=== PATIENT | female | born 1980 | race Caucasian/White ===

== ENCOUNTER 2020-08-10 12:59 | Inpatient (IN) ==
--- NOTE | 2020-08-10 13:29 | Emergency Department Note ---
Impression & Plan Neurologic disorder, Facial droop, Cerebrovascular accident ED Provider Note NAME: RONI FELDMAN AGE: 40 SEX: F : 1980 ARRIVES VIA: Walk-In INFORMANT: Patient, ED PROVIDER(S): Abdoul Degroot DO CHIEF COMPLAINT: Facial droop HPI: The patient is a 40-year-old female who presented to the emergency department for neurologic symptoms. The patient has a history of a dural venous thrombosis in her brain last summer. The patient states that she has been managed well on Coumadin and has had no problems until last week. She started noticing some questionable symptoms that she thought could be related to her nervous system including ringing in the ears. She has noticed ringing in the ears over the course the last week. It seems to be localized to her right ear. She denies having any trauma. She denies having any hearing loss. She denies having any significant headaches but started noticing some numbness on the right side of her face. When she awoke this morning she started noticing a drooping on her right side of her face as well involving her mouth. She denies having any recent fever or chills. She has had no cough. She has been compliant with all of her outpatient medication including her Coumadin. She was seen at the Coumadin clinic this week and was told her INR was therapeutic. The patient mika led her primary neurologist but did not receive a phone call back this week. She started to notice the facial droop today and this is what prompted her to come to the emergency department. She states her symptoms are unchanged since this morning. ROS: See above HPI for pertinent positives & negatives. A total of 10 systems reviewed and were otherwise negative. PAST MEDICAL HISTORY: See Below PAST SURGICAL HISTORY: See Below FAMILY HISTORY: See Below SOCIAL HISTORY: See Below HOME MEDICATIONS: See Below ALLERGIES: See Below VITALS: See Below PHYSICAL EXAMINATION: GENERAL: The patient is awake and alert. The patient is very anxious appearing. EYES: The conjunctivae are clear. The pupils are round and reactive. EARS, NOSE, MOUTH AND THROAT: The nose is without any evidence of any deformity. NECK: The neck is nontender and supple. RESPIRATORY: Normal respiratory effort is noted there is no evidence of wheezing rhonchi or rales CARDIOVASCULAR: Regular rate and rhythm noted there no murmurs rubs or gallops normal S1 normal S2. GASTROINTESTINAL: The abdomen is soft. Abdomen is nontender. MUSCULOSKELETAL/EXTREMITIES: There is no evidence of gross deformity full range of motion is noted in the hips and shoulders. SKIN: There is no obvious evidence of any rash. There are no petechiae, pallor or cyanosis noted. NEUROLOGIC: Patient is awake alert and oriented x3 strength is symmetric patellar reflexes are 2+ bilaterally. There is a facial droop that spares the forehead but appears to include the right side of the mouth. MEDICAL DECISION MAKING: The patient is a 40-year-old female who presented to the emergency department for an evaluation of right facial droop. 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 She does take oral anticoagulation and is followed at the Coumadin clinic. The patient started having tinnitus in the right ear. Initially this did not raise any flags and she did not think there was anything wrong. She started noticing over the last 24 hours that she had right facial numbness and right facial droop. She did appear to have a slight facial droop in the corner of the mouth on the right side with forehead sparing. Laboratory and radiographic studies were obtained. The patient was not made a stroke alert given her onset of symptoms approximately 1 week ago. She does appear to have chronic signs of venous thrombosis in the central nervous system however there were no acute findings. I discussed the patient's laboratory and radiographic studies with her. I discussed her case with the on-call [facility] hospitalist. They have agreed to evaluate the patient in the emergency department for further management and disposition. Triage Nursing notes reviewed. Prior medical records reviewed Vital Signs: reviewed and remarkable for tachycardia intermittently. Differential diagnosis: Infection, dehydration, metabolic abnormality, hypo/hyperglycemia, electrolyte disturbance, anemia, hypoxia, cardiac sources, intracerebral event, toxicologic, neurologic, as well as other pathologies. ER treatment provided: See below Diagnostics interpreted by me: ECG: EKG was obtained in the emergency department. My interpretation is sinus tachycardia at 111 bpm. There was no ectopy. Diffuse ST segment abnormalities were noted. Diffuse T wave flattening was noted. No previous tracing was available for comparison. Cardiac Monitoring: An order was placed for continuous cardiac monitoring. The monitor shows a rate of 89 bpm with sinus rhythm. Laboratory studies: As stated above and show below. Imaging studies: See below Consultation(s): 1510: I discussed this case with Dr. Alegre who is on-call for the [facility] hospitalist group. Past Med/Surg History Medical History (Updated 08/10/20 @ 19:08 by Abdoul Degroot DO) Chronic back pain L4-L5 Dural venous sinus thrombosis Environmental and seasonal allergies Hypothyroidism Lumbar facet arthropathy Migraine Surgical History History of adenoidectomy History of section History of tonsillectomy Family History Grandmother (Maternal) Lymph node cancer Social History Smoking Status: Never smoker Second Hand Exposure: No; Hx Alcohol Use: No Hx Substance Use: No Preferred Language: Hungarian Communication Ability: Effective Didactic Program In Dietetics Director Required: No Beliefs That Will Affect Care: None Current Living Situation: Family Feels Safe at Home: Yes Assistive Devices: Glasses Allergies Allergies Allergy/AdvReac Type Severity Reaction Status Date / Time pollen extracts Allergy Intermediate ITCHY, Verified 08/10/20 15:02 WATERY EYES, SNEEZING, CONGESTION Home Meds Home Medications Medication Instructions Recorded Confirmed cetirizine [Zyrtec] 10 mg PO QAM 01/17/20 08/10/20 levothyroxine 150 mcg PO DAILYBB 08/10/20 08/10/20 warfarin See Rx Instructions .ROUTE .COMPLEX 08/10/20 08/10/20 Results & Data (ED) Vital Signs Vital Signs - 24 hr 08/10/20 13:04 08/10/20 13:30 08/10/20 13:45 Temperature 36.5 C Temperature Source Oral Pulse Rate 141 H 109 H 93 H Pulse Rate from SpO2 Sensor 113 H 97 H Pulse Rhythm Regular Respiratory Rate 20 18 18 Respiratory Effort / Characteristics Non-Labored Spontaneous Respiratory Depth Normal Respiratory Pattern Regular Blood Pressure 111/82 132/93 121/78 Blood Pressure Mean 91 106 92 Pulse Oximetry 96 94 95 Oxygen Delivery Method Room Air Sepsis Recent Fever Within 48 Hours No Sepsis New/Unexplained Change in Mental Status No Sepsis Action Taken by Nursing No Action Required 08/10/20 15:38 08/10/20 16:00 08/10/20 16:31 Temperature Temperature Source Pulse Rate 88 109 H 99 H Pulse Rate from SpO2 Sensor 83 104 H 99 H Pulse Rhythm Respiratory Rate 22 18 22 Respiratory Effort / Characteristics Respiratory Depth Respiratory Pattern Blood Pressure 136/60 106/81 108/78 Blood Pressure Mean 85 89 88 Pulse Oximetry 95 96 91 Oxygen Delivery Method Sepsis Recent Fever Within 48 Hours Sepsis New/Unexplained Change in Mental Status Sepsis Action Taken by Nursing 08/10/20 17:00 Temperature Temperature Source Pulse Rate 90 Pulse Rate from SpO2 Sensor 93 H Pulse Rhythm Respiratory Rate 16 Respiratory Effort / Characteristics Respiratory Depth Respiratory Pattern Blood Pressure 114/85 Blood Pressure Mean 94 Pulse Oximetry 97 Oxygen Delivery Method Sepsis Recent Fever Within 48 Hours Sepsis New/Unexplained Change in Mental Status Sepsis Action Taken by Assisted Medications Current Medication List: was personally reviewed by me Laboratory Data Attestation: I reviewed the patient's lab results. Result diagrams: 08/10/20 13:10 08/10/20 13:10 Lab Results 08/10/20 08/10/20 08/10/20 Range/Units 13:10 13:10 13:10 WBC 8.03 (4.8-10.8) K/uL RBC 4.68 (4.2-5.4) M/uL Hgb 14.9 (12.0-16.0) g/dL POC Hgb (12.0-16.0) g/dl Hct 42.7 (37-47) % POC Hct (37-47) % MCV 91.2 (80-100) fL MCH 31.8 (25-34) pg MCHC 34.9 (32-36) g/dL RDW Std Deviation 44.2 (36.4-46.3) fL RDW Coeff of Pilar 13.4 (11.5-14.5) % Plt Count 310 (130-400) K/uL MPV 10.2 (7.4-10.4) fL Immature Gran % (Auto) 0.1 % Neut % (Auto) 45.9 % Lymph % (Auto) 45.1 % Berks % (Auto) 6.7 % Eos % (Auto) 2.1 % Baso % (Auto) 0.1 % Neut # (Auto) 3.68 (1.4-6.5) K/uL Lymph # (Auto) 3.62 H (1.2-3.4) K/uL Berks # (Auto) 0.54 (0.11-0.59) K/uL Eos # (Auto) 0.17 (0-0.5) K/uL Baso # (Auto) 0.01 (0-0.2) K/uL Immature Gran # (Auto) 0.01 (0.00-0.02) K/uL PT 22.2 H (9.0-12.0) Seconds INR 2.3 H (0.9-1.1) APTT 34.5 H (21.0-31.0) Seconds PTT Ratio 1.3 POC Sodium (135-144) mmol/L Sodium 139 (136-145) mmol/L POC Potassium (3.3-5.0) mmol/L Potassium 3.6 (3.5-5.1) mmol/L POC Chloride (101-112) mmol/L Chloride 106 (98-107) mmol/L Carbon Dioxide 24 (21-32) mmol/L POC Total CO2 (24-31) mmol/L Anion Gap 9.0 (3-11) POC Anion Gap (16-25) mmol/L POC BUN (7-18) mg/dl BUN 10 (7-18) mg/dl Creatinine 0.81 (0.6-1.2) mg/dl POC Creatinine (0.6-1.3) mg/dl Est Cr Clr Drug Dosing 109.6 ml/min Est GFR ( Amer) 103.8 Est GFR (Non-Af Amer) 89.6 BUN/Creatinine Ratio 11.9 (10-20) Glucose 126 H (70-99) mg/dl POC Glucose (other) (70-99) mg/dl Calcium 8.2 L (8.5-10.1) mg/dl POC Ioniz Calcium Maylin (1.12-1.32) mmol/l Magnesium 1.7 L (1.8-2.4) mg/dl Total Bilirubin 0.3 (0.2-1) mg/dl AST 30 (15-37) U/L ALT 54 (12-78) U/L Alkaline Phosphatase 141 H (45-117) U/L Troponin I < 0.015 (0-0.045) ng/ml Total Protein 7.0 (6.4-8.2) gm/dl Albumin 3.2 L (3.4-5.0) gm/dl Globulin 3.8 (2.5-4.0) gm/dl Albumin/Globulin Ratio 0.8 L (0.9-2) HCG, Qual (Negative) COVID-19 Eval Order SARS-CoV-2 (PCR) (Negative) Influenza Type A (PCR) (Neg) Influenza Type B (PCR) (Neg) RSV (RT-PCR) (Neg) 08/10/20 08/10/20 08/10/20 Range/Units 13:10 13:33 15:25 WBC (4.8-10.8) K/uL RBC (4.2-5.4) M/uL Hgb (12.0-16.0) g/dL POC Hgb 15.0 (12.0-16.0) g/dl Hct (37-47) % POC Hct 44 (37-47) % MCV (80-100) fL MCH (25-34) pg MCHC (32-36) g/dL RDW Std Deviation (36.4-46.3) fL RDW Coeff of Pilar (11.5-14.5) % Plt Count (130-400) K/uL MPV (7.4-10.4) fL Immature Gran % (Auto) % Neut % (Auto) % Lymph % (Auto) % Berks % (Auto) % Eos % (Auto) % Baso % (Auto) % Neut # (Auto) (1.4-6.5) K/uL Lymph # (Auto) (1.2-3.4) K/uL Berks # (Auto) (0.11-0.59) K/uL Eos # (Auto) (0-0.5) K/uL Baso # (Auto) (0-0.2) K/uL Immature Gran # (Auto) (0.00-0.02) K/uL PT (9.0-12.0) Seconds INR (0.9-1.1) APTT (21.0-31.0) Seconds PTT Ratio POC Sodium 139 (135-144) mmol/L Sodium (136-145) mmol/L POC Potassium 3.6 (3.3-5.0) mmol/L Potassium (3.5-5.1) mmol/L POC Chloride 105 (101-112) mmol/L Chloride (98-107) mmol/L Carbon Dioxide (21-32) mmol/L POC Total CO2 23 L (24-31) mmol/L Anion Gap (3-11) POC Anion Gap 15.0 L (16-25) mmol/L POC BUN 10 (7-18) mg/dl BUN (7-18) mg/dl Creatinine (0.6-1.2) mg/dl POC Creatinine 0.6 (0.6-1.3) mg/dl Est Cr Clr Drug Dosing ml/min Est GFR ( Amer) Est GFR (Non-Af Amer) BUN/Creatinine Ratio (10-20) Glucose (70-99) mg/dl POC Glucose (other) 131 H (70-99) mg/dl Calcium (8.5-10.1) mg/dl POC Ioniz Calcium Maylin 1.13 (1.12-1.32) mmol/l Magnesium (1.8-2.4) mg/dl Total Bilirubin (0.2-1) mg/dl AST (15-37) U/L ALT (12-78) U/L Alkaline Phosphatase (45-117) U/L Troponin I (0-0.045) ng/ml Total Protein (6.4-8.2) gm/dl Albumin (3.4-5.0) gm/dl Globulin (2.5-4.0) gm/dl Albumin/Globulin Ratio (0.9-2) HCG, Qual Negative (Negative) COVID-19 Eval Order CovFluRsv at [facility] SARS-CoV-2 (PCR) (Negative) Influenza Type A (PCR) (Neg) Influenza Type B (PCR) (Neg) RSV (RT-PCR) (Neg) 08/10/20 Range/Units 15:25 WBC (4.8-10.8) K/uL RBC (4.2-5.4) M/uL Hgb (12.0-16.0) g/dL POC Hgb (12.0-16.0) g/dl Hct (37-47) % POC Hct (37-47) % MCV (80-100) fL MCH (25-34) pg MCHC (32-36) g/dL RDW Std Deviation (36.4-46.3) fL RDW Coeff of Pilar (11.5-14.5) % Plt Count (130-400) K/uL MPV (7.4-10.4) fL Immature Gran % (Auto) % Neut % (Auto) % Lymph % (Auto) % Berks % (Auto) % Eos % (Auto) % Baso % (Auto) % Neut # (Auto) (1.4-6.5) K/uL Lymph # (Auto) (1.2-3.4) K/uL Berks # (Auto) (0.11-0.59) K/uL Eos # (Auto) (0-0.5) K/uL Baso # (Auto) (0-0.2) K/uL Immature Gran # (Auto) (0.00-0.02) K/uL PT (9.0-12.0) Seconds INR (0.9-1.1) APTT (21.0-31.0) Seconds PTT Ratio POC Sodium (135-144) mmol/L Sodium (136-145) mmol/L POC Potassium (3.3-5.0) mmol/L Potassium (3.5-5.1) mmol/L POC Chloride (101-112) mmol/L Chloride (98-107) mmol/L Carbon Dioxide (21-32) mmol/L POC Total CO2 (24-31) mmol/L Anion Gap (3-11) POC Anion Gap (16-25) mmol/L POC BUN (7-18) mg/dl BUN (7-18) mg/dl Creatinine (0.6-1.2) mg/dl POC Creatinine (0.6-1.3) mg/dl Est Cr Clr Drug Dosing ml/min Est GFR ( Amer) Est GFR (Non-Af Amer) BUN/Creatinine Ratio (10-20) Glucose (70-99) mg/dl POC Glucose (other) (70-99) mg/dl Calcium (8.5-10.1) mg/dl POC Ioniz Calcium Maylin (1.12-1.32) mmol/l Magnesium (1.8-2.4) mg/dl Total Bilirubin (0.2-1) mg/dl AST (15-37) U/L ALT (12-78) U/L Alkaline Phosphatase (45-117) U/L Troponin I (0-0.045) ng/ml Total Protein (6.4-8.2) gm/dl Albumin (3.4-5.0) gm/dl Globulin (2.5-4.0) gm/dl Albumin/Globulin Ratio (0.9-2) HCG, Qual (Negative) COVID-19 Eval Order SARS-CoV-2 (PCR) NEGATIVE (Negative) Influenza Type A (PCR) Negative (Neg) Influenza Type B (PCR) Negative (Neg) RSV (RT-PCR) Negative (Neg) Administered Medications Discontinued Medications Gadobutrol (Gadobutrol 65ml Vial) 10 ml IV ONCE ONE Stop: 08/10/20 18:54 Last Admin: 08/10/20 18:53 Dose: 10 ml Documented by: [id number] Ioversol (Optiray 320 125ml) 120 ml IV ONCE ONE Stop: 08/10/20 13:50 Last Admin: 08/10/20 13:49 Dose: 120 ml Documented by: [id number] Imaging Data Radiologist's Impression: Chest X-Ray 08/10/20 13:20 SINGLE VIEW CHEST CLINICAL HISTORY: Strokelike symptoms. Right-sided facial droop. FINDINGS: An AP, portable, upright chest radiograph is obtained. No prior studies are available for comparison at the time of dictation. The cardiomediastinal silhouette is unremarkable. The lungs and pleural spaces are clear. No pneumothorax is seen. The bony thorax is grossly intact. IMPRESSION: No active disease in the chest. ACT 112: Negative or not required by law. Electronically signed by: Ramu Gleason M.D. 08/10/2020 2:[address] 08/10/20 13:[address] OF THE BRAIN; CT VENOGRAM OF THE BRAIN CLINICAL HISTORY: Right-sided facial droop. COMPARISON STUDY: CT of the brain dated 01/17/2020. MR venogram of the brain dated 09/30/2019. TECHNIQUE: Unenhanced axial CT scan of the brain is performed. Subsequently, following the IV administration of 120 cc of Optiray 320, CT venogram of the brain was performed from the skull base to the vertex. Images are reviewed in the axial, sagittal, and coronal planes. 3-D MIPS images are created and assessed. IV contrast was administered without complication. A dose lowering technique was utilized adhering to the principles of ALARA. CT DOSE: 725.81 mGy.cm FINDINGS: Brain parenchyma: The brain parenchyma is normal in appearance. There is no hemorrhage, mass effect, or evidence of acute territorial ischemia by CT criteria. There is no evidence of enhancing mass lesion on the venogram phase images. No extra-axial fluid collection is seen. Scherer-white matter differentiation is preserved. Ventricles, sulci, and cisterns: Normal in configuration. Intracranial arteries: There is origin of the left posterior cerebral art clive. The internal carotid arteries are widely patent, as are the anterior and middle cerebral arteries. The vertebrobasilar system and posterior cerebral arteries are widely patent. The left vertebral artery is dominant. There is no aneurysm, high-grade stenosis, or focal vessel cutoff identified throughout the intracranial circulation. Dural sinuses: There is no evidence of acute dural sinus thrombosis. There is a small amount of chronic appearing nonocclusive thrombus within the right transverse and sigmoid sinuses. Nonocclusive thrombus is also identified in the right internal jugular vein at the skull base. The internal jugular veins in the neck are clear. The remaining dural sinuses are patent. Orbits: The bony orbits are intact. The orbital contents are normal as visualized. Sinuses and mastoids: Trace mucosal thickening is noted in the maxillary antra and the sphenoid sinuses. The mastoid air cells are well pneumatized. Calvarium: Unremarkable. IMPRESSION: 1. There is no hemorrhage, mass effect, or evidence of acute territorial ischemia by CT criteria. 2. The intracranial arteries are patent. 3. There is a small amount of chronic appearing and nonocclusive thrombus in the right transverse and sigmoid sinuses. 4. There is also nonocclusive thrombus within the right internal jugular vein at the skull base. This is also likely chronic. ACT 112: Negative or not required by law. Electronically signed by: Ramu Gleason M.D. 08/10/2020 2:[address] 08/10/20 13:[address] OF THE BRAIN; CT VENOGRAM OF THE BRAIN CLINICAL HISTORY: Right-sided facial droop. COMPARISON STUDY: CT of the brain dated 01/17/2020. MR venogram of the brain dated 09/30/2019. TECHNIQUE: Unenhanced axial CT scan of the brain is performed. Subsequently, following the IV administration of 120 cc of Optiray 320, CT venogram of the brain was performed from the skull base to the vertex. Images are reviewed in the axial, sagittal, and coronal planes. 3-D MIPS images are created and assessed. IV contrast was administered without complication. A dose lowering technique was utilized adhering to the principles of ALARA. CT DOSE: 725.81 mGy.cm FINDINGS: Brain parenchyma: The brain parenchyma is normal in appearance. There is no hemorrhage, mass effect, or evidence of acute territorial ischemia by CT criteria. There is no evidence of enhancing mass lesion on the venogram phase images. No extra-axial fluid collection is seen. Scherer-white matter differentiation is preserved. Ventricles, sulci, and cisterns: Normal in configuration. Intracranial arteries: There is origin of the left posterior cerebral artery. The internal carotid arteries are widely patent, as are the anterior and middle cerebral arteries. The vertebrobasilar system and posterior cerebral arteries are widely patent. The left vertebral artery is dominant. There is no aneurysm, high-grade stenosis, or focal vessel cutoff identified throughout the intracranial circulation. Dural sinuses: There is no evidence of acute dural sinus thrombosis. There is a small amount of chronic appearing nonocclusive thrombus within the right transverse and sigmoid sinuses. Nonocclusive thrombus is also identified in the right internal jugular vein at the skull base. The internal jugular veins in the neck are clear. The remaining dural sinuses are patent. Orbits: The bony orbits are intact. The orbital contents are normal as visualized. Sinuses and mastoids: Trace mucosal thickening is noted in the maxillary antra and the sphenoid sinuses. The mastoid air cells are well pneumatized. Calvarium: Unremarkable. IMPRESSION: 1. There is no hemorrhage, mass effect, or evidence of acute territorial ischemia by CT criteria. 2. The intracranial arteries are patent. 3. There is a small amount of chronic appearing and nonocclusive thrombus in the right transverse and sigmoid sinuses. 4. There is also nonocclusive thrombus within the right internal jugular vein at the skull base. This is also likely chronic. ACT 112: Negative or not required by law. Electronically signed by: Ramu Gleason M.D. 08/10/2020 2:00 PM Discharge Plan Visit Data Chief Complaint: Neuro Symptoms/Deficit Stated Complaint: BLOOD CLOT IN BRAIN, RIGHT SIDE NUMB, BLOOD THINNE ED Provider: Abdoul Degroot Discharge Problem: Neurologic disorder, Facial droop, Cerebrovascular accident Patient Disposition: Still a Patient Condition: Good Forms Stand Alone Forms: My [facility] Prescriptions Prescriptions: No Action cetirizine [Zyrtec] 10 mg Tablet 10 mg PO QAM RF: 0 warfarin 5 mg tablet See Rx Instructions .ROUTE .COMPLEX RF: 0 levothyroxine 150 mcg tablet 150 mcg PO DAILYBB RF: 0 Referrals Referrals: Zuri Fish [Primary Care Provider] - Discharge Problem: Cerebrovascular accident Qualifiers: CVA mechanism: unspecified Qualified Code(s): I63.9 - Cerebral infarction, unspecified
[2020-08-10 13:38] LABS: Basophils # (auto) 0.01 K/uL (0-0.2); Basophils % (auto) 0.1 %; Eosinophils # (auto) 0.17 K/uL (0-0.5); Eosinophils % (auto) 2.1 %; Hematocrit (blood only) 42.7 % (37-47); Hemoglobin 14.9 g/dL (12.0-16.0); Immature Granulocytes # (auto) 0.01 K/uL (0.00-0.02); Immature Granulocytes % (auto) 0.1 %; Lymphocytes # (auto) 3.62 K/uL (1.2-3.4); Lymphocytes % (auto) 45.1 %; Mean Corpuscular Hemoglobin 31.8 pg (25-34); Mean Corpuscular Hgb Conc 34.9 g/dL (32-36); Mean Corpuscular Volume 91.2 fL (80-100); Mean Platelet Volume 10.2 fL (7.4-10.4); Monocytes # (auto) 0.54 K/uL (0.11-0.59); Monocytes % (auto) 6.7 %; Neutrophils # (auto) 3.68 K/uL (1.4-6.5); Neutrophils % (auto) 45.9 %; Platelet Count 310 K/uL (130-400); RDW Coefficient of Variation 13.4 % (11.5-14.5); RDW Standard Deviation 44.2 fL (36.4-46.3); Red Blood Count 4.68 M/uL (4.2-5.4); White Blood Count 8.03 K/uL (4.8-10.8)
[2020-08-10 13:46] LABS: iSTAT Creatinine 0.6 mg/dl (0.6-1.3); iSTAT Ionized Calcium 1.13 mmol/l (1.12-1.32); iSTAT Potassium 3.6 mmol/L (3.3-5.0)
[2020-08-10] MEDS ORDERED: OPTIRAY 320 125ml IV ONE (13:49)
[2020-08-10 13:52] LABS: INR 2.3 (0.9-1.1); Partial Thromboplastin Ratio 1.3; Partial Thromboplastin Time 34.5 Seconds (21.0-31.0); Prothrombin Time 22.2 Seconds (9.0-12.0)
[2020-08-10 13:53] LABS: Alanine Aminotransferase 54 U/L (12-78); Albumin Level 3.2 gm/dl (3.4-5.0); Aspartate Aminotransferase 30 U/L (15-37); BUN Creatinine Ratio 11.9 (10-20); Blood Urea Nitrogen 10 mg/dl (7-18); Calcium 8.2 mg/dl (8.5-10.1); Carbon Dioxide 24 mmol/L (21-32); Chloride 106 mmol/L (98-107); Creatinine Clr Calc Pharmacy 109.6 ml/min; Est GFR (African American) 103.8; Est GFR (Non-African American) 89.6; Glucose 126 mg/dl (70-99); Magnesium 1.7 mg/dl (1.8-2.4); Potassium 3.6 mmol/L (3.5-5.1); Sodium 139 mmol/L (136-145)
--- NOTE | 2020-08-10 13:55 | Electrocardiogram Report ---
Test Reason : Blood Pressure : / mmHG Vent. Rate : 111 BPM Atrial Rate : 111 BPM P-R Int : 158 ms QRS Dur : 092 ms QT Int : 344 ms P-R-T Axes : 030 -65 062 degrees QTc Int : 467 ms Sinus tachycardia Left axis deviation Pulmonary disease pattern Diffuse Minor Nonspecific T wave abnormality Abnormal ECG No previous ECGs available Confirmed by Yossi Winter ([id number]) on 08/10/2020 1:54:46 PM Referred By: Confirmed By:Yossi Winter
[2020-08-10 13:57] LABS: Albumin Globulin Ratio 0.8 (0.9-2); Alkaline Phosphatase 141 U/L (45-117); Bilirubin,Total 0.3 mg/dl (0.2-1); Globulin 3.8 gm/dl (2.5-4.0); Troponin I < 0.015 ng/ml (0-0.045)
--- NOTE | 2020-08-10 14:01 | CT Scan Report ---
UNENHANCED CT OF THE BRAIN; CT VENOGRAM OF THE BRAIN CLINICAL HISTORY: Right-sided facial droop. COMPARISON STUDY: CT of the brain dated 01/17/2020. MR venogram of the brain dated 09/30/2019. TECHNIQUE: Unenhanced axial CT scan of the brain is performed. Subsequently, following the IV adminis tration of 120 cc of Optiray 320, CT venogram of the brain was performed from the skull base to the v ertex. Images are reviewed in the axial, sagittal, and coronal planes. 3-D MIPS images are created an d assessed. IV contrast was administered without complication. A dose lowering technique was utilize d adhering to the principles of ALARA. CT DOSE: 725.81 mGy.cm FINDINGS: Brain parenchyma: The brain parenchyma is normal in appearance. There is no hemorrhage, mass effect, or evidence of acute territorial ischemia by CT criteria. There is no evidence of enhancing mass lesi on on the venogram phase images. No extra-axial fluid collection is seen. Scherer-white matter different iation is preserved. Ventricles, sulci, and cisterns: Normal in configuration. Intracranial arteries: There is origin of the left posterior cerebral artery. The internal [place] arteries are widely patent, as are the anterior and middle cerebral arteries. The vertebrobasilar system and posterior cerebral arteries are widely patent. The left vertebral artery is dominant. The re is no aneurysm, high-grade stenosis, or focal vessel cutoff identified throughout the intracranial circulation. Dural sinuses: There is no evidence of acute dural sinus thrombosis. There is a small amount of chron ic appearing nonocclusive thrombus within the right transverse and sigmoid sinuses. Nonocclusive thro mbus is also identified in the right internal jugular vein at the skull base. The internal jugular ve ins in the neck are clear. The remaining dural sinuses are patent. Orbits: The bony orbits are intact. The orbital contents are normal as visualized. Sinuses and mastoids: Trace mucosal thickening is noted in the maxillary antra and the sphenoid sinus es. The mastoid air cells are well pneumatized. Calvarium: Unremarkable. IMPRESSION: 1. There is no hemorrhage, mass effect, or evidence of acute territorial ischemia by CT criteria. 2. The intracranial arteries are patent. 3. There is a small amount of chronic appearing and nonocclusive thrombus in the right transverse and sigmoid sinuses. 4. There is also nonocclusive thrombus within the right internal jugular vein at the skull base. This is also likely chronic. ACT 112: Negative or not required by law. Electronically signed by: Ramu Gleason M.D. 08/10/2020 2:00 PM
[2020-08-10 14:17] LABS: Pregnancy Test, Serum Negative (Negative)
--- NOTE | 2020-08-10 14:31 | XRay Report ---
SINGLE VIEW CHEST CLINICAL HISTORY: Strokelike symptoms. Right-sided facial droop. FINDINGS: An AP, portable, upright chest radiograph is obtained. No prior studies are available for c omparison at the time of dictation. The cardiomediastinal silhouette is unremarkable. The lungs and pleural spaces are clear. No pneumothorax is seen. The bony thorax is grossly intact. IMPRESSION: No active disease in the chest. ACT 112: Negative or not required by law. Electronically signed by: Ramu Gleason M.D. 08/10/2020 2:30 PM
--- NOTE | 2020-08-10 15:55 | History & Physical Report ---
Date of Service August 10, 2020 Assessment & Plan (1) Demyelinating disease: Suspected based on MRI Solu-Medrol 1 g IV daily for 3 days. Consult neurology - discussed with Dr. Smith will continue on warfarin and defer lumbar puncture and further work-up to neurology tomorrow (2) Dural venous sinus thrombosis: History of such. Continue usual warfarin dosing. (3) Hypothyroidism: TSH unknown. We will repeat with a.m. labs. Continue levothyroxine 150 mcg p.o. daily (4) Facial droop: (5) Right facial numbness: Admission and Anticipated Discharge Date Admission Date: August 10, 2020 History of Present Illness Chief Complaint: Strokelike symptoms Primary Care Provider: Zuri Fish Annita Su is a 40-year-old female with previous dural venous thrombus in September 2019 (headache and blurry vision) suspected secondary to OCP use treated with warfarin initially plan for 6 months but she still remains on this. She reports multiple symptoms starting with tinnitus in her right ear for the past week. This is associated with orthostatic dizziness especially when bending down to tie shoes. She denies any room spinning sensation. She called her neurology office and recommended going to the ER although she declined therefore they set her up with vestibular therapy which is still pending. In hindsight she realized she felt her lip numbness starting 2 days ago when she has progressively become more obvious. Yesterday she noticed tingling on the top of her right forehead. Today approximately 30 minutes before coming in she noticed the right side of her mouth drooping. Associated throat feeling dry however denies any loss of taste or change in tongue strength. No extremity weakness or change in sensation. No change in speech or vision. No difficulty closing her right eye. In the ER CT venogram showed small chronic nonocclusive changes only, CT head was unremarkable. She was referred to medicine for admission ongoing management of acute neurological deficit with right facial droop. Allergies Allergy/AdvReac Type Severity Reaction Status Date / Time pollen extracts Allergy Intermediate ITCHY, Verified 08/10/20 15:02 WATERY EYES, SNEEZING, CONGESTION Home Medications Medication Instructions Recorded Confirmed Type cetirizine [Zyrtec] 10 mg PO QAM 01/17/20 08/10/20 History levothyroxine 150 mcg PO DAILYBB 08/10/20 08/10/20 History warfarin See Rx Instructions .ROUTE .COMPLEX 08/10/20 08/10/20 History Past Med/Surg History Medical History (Updated 08/10/20 @ 22:02 by Bob Alegre MD) Chronic back pain L4-L5 Dural venous sinus thrombosis Environmental and seasonal allergies Hypothyroidism Lumbar facet arthropathy Migraine Surgical History History of adenoidectomy History of section History of tonsillectomy Family History Grandmother (Maternal) Lymph node cancer Social History Smoking Status: Never smoker Second Hand Exposure: No; Hx Alcohol Use: No Hx Substance Use: No Preferred Language: [place]er Communication Ability: Effective Cardiac Catheterization Technician Required: No Beliefs That Will Affect Care: None Current Living Situation: Family Feels Safe at Home: Yes Assistive Devices: Glasses Review of Systems Review of Systems: All systems reviewed & are unremarkable except as noted in HPI & below Physical Exam Constitutional: WD/WN, vitals as above + obese Eyes: PERRL, conjunctivae normal, anicteric sclerae ENMT: external ear and nose normal, oropharynx normal Neck: trachea midline Respiratory: normal respiratory effort, lungs clear to auscultation Cardiovascular: RRR, no murmur, no edema Musculoskeletal: no cyanosis or clubbing, extremities motor strength 5/5 Neurologic: moves all extremities and awake; no focal motor deficits (No extremity motor deficit) and not confused Motor/Sensory: + sensory deficit (Right V1and V2 distribution numbness) Cranial Nerves: PERRL, EOM intact bilaterally (No diplopia), tongue midline, able to rotate head bilaterally, able to elevate shoulders bilaterally, no nystagmus and symmetric palate elevation; + abnormal facial strength (Right mouth droop) Psychiatric: A+Ox3, euthymic affect Genitourinary: no CVA tenderness Results & Data Results & Data ([facility]) Vital Signs (Past 12 Hours) Vital Signs Temp Pulse Resp BP Pulse Ox 08/10/20 15:38 88 22 136/60 95 08/10/20 13:45 93 H 18 121/78 95 08/10/20 13:30 109 H 18 132/93 94 04/04/21 13:04 36.5 C 141 H 20 111/82 96 Diagnostic Findings SINGLE VIEW CHEST IMPRESSION: No active disease in the chest. UNENHANCED CT OF THE BRAIN; CT VENOGRAM OF THE BRAIN IMPRESSION: 1. There is no hemorrhage, mass effect, or evidence of acute territorial ischemia by CT criteria. 2. The intracranial arteries are patent. 3. There is a small amount of chronic appearing and nonocclusive thrombus in the right transverse and sigmoid sinuses. 4. There is also nonocclusive thrombus within the right internal jugular vein at the skull base. This is also likely chronic. MRI OF THE BRAIN COMBO IMPRESSION: 1. There is an 8 mm focus of T2 signal abnormality identified at the right pontomedullary junction. This demonstrates abnormal postcontrast enhancement, and when correlated with the cervical spine findings likely represents a focus of active demyelination within a multiple sclerosis plaque. Follow-up with neurology is recommended, and repeat examination in 1-2 months is recommended to document resolution. 2. There are additional scattered subcentimeter foci of T2 signal within the subcortical and periventricular white matter. A lesion in the right frontal lobe periventricular white matter also shows mild postcontrast enhancement. 3. There are 2 additional T2 hyperintense lesions within the upper cervical cord, also likely representing foci of demyelination. 4. There is no hemorrhage, mass effect, or evidence of acute ischemia. MRI OF THE CERVICAL SPINE COMBO IMPRESSION: 1. There are three T2 hyperintense lesions identified in the cervical cord as detailed above. These could represent demyelinating plaques in the setting of multiple sclerosis as clinically suspected. 2. There is no abnormal postcontrast enhancement identified. 3. Mild degenerative change as above. Code Status & VTE Plan Code Status Full VTE Prophylaxis Plan VTE Prophylaxis will be ordered: No Reason for no VTE drug order: Treatment not indicated Reason for no VTE mechanical prophylaxis: Treatment not indicated PG Care Time/CCT Total # of Minutes Spent Total Time Spent with Patient: Total time spent is greater than 50% in coordination of care (as documented) at patient's floor/unit and/or counseling patient: Coding Level of Care Code 81047 Initial Inpt Care Lvl 3 Diagnoses Demyelinating disease G37.9 Dural venous sinus thrombosis G08 Hypothyroidism E03.9 Facial droop R29.810 Right facial numbness R20.0
[2020-08-10 16:14] LABS: Influenza A virus by PCR Negative (Neg); Influenza B virus by PCR Negative (Neg); RSV by PCR Negative (Neg); SARS CoV2 RNA(COVID-19) InHosp NEGATIVE (Negative)
[2020-08-10] MEDS ORDERED: GADOBUTROL 65ML VIAL IV ONE (18:53)
--- NOTE | 2020-08-10 19:31 | Magnetic Resonance Report ---
MRI OF THE BRAIN COMBO CLINICAL HISTORY: Right-sided facial droop. Right-sided numbness. Clinical concern for multiple scler osis. COMPARISON STUDY: CT of the brain dated 08/10/2020. MRI of the brain dated 09/30/2019. TECHNIQUE: MRI of the brain was performed utilizing various T1 and T2-weighted sequences in the axial , sagittal, and coronal planes. Contrast-enhanced sequences were acquired following the administratio n of 10 cc of Gadavist. The examination is performed using the multiple sclerosis protocol. FINDINGS: Brain parenchyma: There are 3 subcentimeter foci of T2 signal abnormality identified in the subcortic al and periventricular white matter. A lesion in the right frontal white matter on coronal image #8 s hows postcontrast enhancement. An 8 mm focus of T2 signal abnormality is identified in the right pont omedullary junction on high-resolution FLAIR image #42 of 129. This shows abnormal postcontrast enhan cement, best seen on coronal image #16. There is no hemorrhage or mass effect. There is no restricted diffusion typical for acute ischemia. No enhancing mass lesion is identified on the postcontrast brendon ges. Scherer-white matter differentiation is preserved. No extra-axial fluid collection is seen. The cer ebellar tonsils are normal in configuration. Ventricles, sulci, and cisterns: Normal in configuration. Pituitary and sella: Unremarkable. Intracranial vasculature: Normal flow voids are maintained at the skull base. Orbits: The bony orbits are grossly intact. Orbital contents are normal in appearance. Sinuses and mastoids: There is mild mucosal thickening and secretions within the left sphenoid sinus. The remaining paranasal sinuses are clear. The mastoid air cells are well pneumatized. Calvarium: Unremarkable. Cervical cord: There are 2 T2 hyperintense lesions identified in the upper cervical cord at the crani ocervical junction and at the level of C2 which measure up to 1 cm. IMPRESSION: 1. There is an 8 mm focus of T2 signal abnormality identified at the right pontomedullary junction. T his demonstrates abnormal postcontrast enhancement, and when correlated with the cervical spine findi ngs likely represents a focus of active demyelination within a multiple sclerosis plaque. Follow-up w [facility] neurology is recommended, and repeat examination in 1-2 months is recommended to document resolut ion. 2. There are additional scattered subcentimeter foci of T2 signal within the subcortical and perivent ricular white matter. A lesion in the right frontal lobe periventricular white matter also shows mild postcontrast enhancement. 3. There are 2 additional T2 hyperintense lesions within the upper cervical cord, also likely represe nting foci of demyelination. 4. There is no hemorrhage, mass effect, or evidence of acute ischemia. ACT 112: Negative or not required by law. Electronically signed by: Ramu Gleason M.D. 08/10/2020 7:30 PM
--- NOTE | 2020-08-10 19:42 | Magnetic Resonance Report ---
MRI OF THE CERVICAL SPINE COMBO CLINICAL HISTORY: Tinnitus. Right-sided facial and upper extremity numbness. Clinical concern for mul tiple sclerosis. COMPARISON STUDY: No priors. TECHNIQUE: MRI of the cervical spine is performed utilizing various T1 and T2-weighted sequences in t he axial and sagittal planes. Contrast-enhanced sequences are acquired following the IV administratio n of 10 cc of Gadavist. FINDINGS: Cervical spine: Vertebral body height and alignment are maintained throughout the cervical spine. The re is straightening of the cervical lordosis. The atlantodental articulation is maintained. The spino us processes appear intact. A small hemangioma is noted in the body of C7. No destructive bony lesion is seen. Intervertebral discs: There is mild degenerative disc desiccation. The disc spaces are maintained. Spinal cord: The cervical spinal cord is normal in morphology. There is a 1.0 cm T2 hyperintense lesi on at the level of C2 seen on sagittal STIR image #7. A 5 mm lesion is suggested in the left aspect o f the cord at C3-C4, and a 5 mm lesion is suggested at the craniocervical junction on sagittal STIR i mage #8. There is no associated abnormal postcontrast enhancement. C2-C3: Uncovertebral and facet arthropathy of no consequence. The central canal and neural foramina a re patent. C3-C4: Facet arthropathy is of no consequence. The central canal and neural foramina are patent. C4-C5: A posterior disc osteophyte complex eccentric to the right minimally effaces the ventral subar achnoid space. The neural foramina are patent. C5-C6: A posterior disc osteophyte complex eccentric to the right abuts the ventral cord. The neural foramina appear clear. C6-C7: A posterior disc osteophyte complex eccentric to the right minimally effaces the ventral subar achnoid space. The neural foramina are clear. C7-T1: Unremarkable. Soft tissues: The prevertebral and paraspinous soft tissues are normal as visualized. Brain parenchyma: The imaged brain parenchyma at the skull base is normal in appearance. IMPRESSION: 1. There are three T2 hyperintense lesions identified in the cervical cord as detailed above. These c ould represent demyelinating plaques in the setting of multiple sclerosis as clinically suspected. 2. There is no abnormal postcontrast enhancement identified. 3. Mild degenerative change as above. Dictated: 08/10/2020 7:01 PM Transcribed: 08/10/2020 7:38 PM Nesha [id number] [id number] Electronically signed by: Ramu Gleason M.D. 08/10/2020 7:41 PM
[2020-08-10] MEDS ORDERED: methylPREDNISolone 125 MG/2 ML VIAL IV STA (20:02)
[2020-08-10] MEDS ORDERED: methylPREDNISolone 1,000 MG in DEXTROSE 5% 250 ML IV ONE (20:15)
[2020-08-10] MEDS ORDERED: WARFARIN SOD 5 MG TAB PO ONE (22:11)
[2020-08-11] MEDS: LEVOTHYROXINE SODIUM 150 MCG TABLET PO SCH (05:45)
[2020-08-11] MEDS ORDERED: METOPROLOL TARTRATE 1 MG/ML VIAL IV PRN (07:37)
--- NOTE | 2020-08-11 07:37 | Hospitalist Progress Note ---
Date of Service August 11, 2020 Assessment & Plan (1) Demyelinating disease: Suspected based on MRI 08/10/20 IMPRESSION: 1. There is an 8 mm focus of T2 signal abnormality identified at the right pontomedullary junction. This demonstrates abnormal postcontrast enhancement, and when correlated with the cervical spine findings likely represents a focus of active demyelination within a multiple sclerosis plaque. Follow-up with neurology is recommended, and repeat examination in 1-2 months is recommended to document resolution. 2. There are additional scattered subcentimeter foci of T2 signal within the subcortical and periventricular white matter. A lesion in the right frontal lobe periventricular white matter also shows mild postcontrast enhancement. 3. There are 2 additional T2 hyperintense lesions within the upper cervical cord, also likely representing foci of demyelination. 4. There is no hemorrhage, mass effect, or evidence of acute ischemia. Solu-Medrol 1 g IV daily for 3 days. Consult neurology - discussed with Dr. Smith will continue on warfarin and defer lumbar puncture and further work-up to neurology tomorrow (2) Dural venous sinus thrombosis: History of such. Continue usual warfarin dosing. Ct venogram head 08/10/20, IMPRESSION: 1. There is no hemorrhage, mass effect, or evidence of acute territorial ischemia by CT criteria. 2. The intracranial arteries are patent. 3. There is a small amount of chronic appearing and nonocclusive thrombus in the right transverse and sigmoid sinuses. 4. There is also nonocclusive thrombus within the right internal jugular vein at the skull base. This is also likely chronic. (3) Hypothyroidism: TSH unknown. We will repeat with a.m. labs. Continue levothyroxine 150 mcg p.o. daily (4) Facial droop: (5) Right facial numbness: Admission and Anticipated Discharge Date Admission Date: August 10, 2020 Subjective Patient was seen in her room she was having improvement of her numbness about her right face. She is having no problems speaking chewing swallowing. She has no other physical limitations. She is on 1 g of Solu-Medrol daily for 3 days. She did ask that I call the [employer] that she is trying to have her returned home from [place] as he is in the service. I did phone the [employer] [facility] answered me standard questions which I answered as honestly as I could. I did voice the fact that the patient feels she is issues with caring for her children and with her overseas and her date dealing with a new diagnosis of multiple sclerosis she would appreciate him to be considered to be brought home. Review of Systems Review of Systems: Mild distress and fatigue no headache, blurry or double vision no speech or swallowing issues has some residual right-sided face paresthesias and numbness no chest pain, pressure or palpitations no shortness of breath, cough or wheezes no abdominal pain, nausea or vomiting, diarrhea or constipation no dysuria, hematuria or frequency no focal joint pain or swelling no back pain, CVA tenderness or radicular pain no bruising, bleeding or rashes no focal signs of weakness or numbness or altered sensation no complaints of anxiety or depression.. Physical Exam Physical Exam: The patient appeared well nourished and normally developed. Vital signs as documented. Head exam is normocephalic atraumatic no scleral icterus there is no facial asymmetry Neck is without JVD, thyromegaly, or carotid bruits. Lungs are clear to auscultation, no focal loss of breath sounds Cardiac exam, Rhythm is regular.. No murmurs, rubs or gallops. Abdominal exam reveals normal bowel sounds, soft non tender, no masses Extremities are nonedematous and both pedal pulses are present She does have chronic daily back pain with a radicular component down her right leg Neurologic exam is alert and oriented, no focal loss of strength no facial muscular asymmetry she claims to have objective paresthesias to her right face Skin is without bruises or rashes Psychologically is with concerns for anxiety Results & Data Results & Data ([facility]) Vital Signs (Past 12 Hours) Vital Signs Temp Pulse Pulse Pulse Resp BP BP 08/11/20 07:28 119 H 133/81 08/11/20 07:26 98.1 F 93 H 20 100/65 08/11/20 07:00 95 H 08/11/20 03:29 97.9 F 94 H 18 95/65 L 08/11/20 00:14 110 H 08/10/20 22:30 98.1 F 108 H 20 106/75 08/10/20 21:50 98.2 F 102 H 18 123/91 08/10/20 21:31 100 H 08/10/20 20:39 89 16 116/89 04/04/21 20:00 91 H 22 133/94 Pulse Ox 08/11/20 07:28 08/11/20 07:26 95 08/11/20 07:00 08/11/20 03:29 94 08/11/20 00:14 08/10/20 22:30 96 08/10/20 21:50 99 08/10/20 21:31 08/10/20 20:39 97 08/10/20 20:00 98 PG Care Time/CCT Total # of Minutes Spent Total Time Spent with Patient: Total time spent is greater than 50% in coordination of care (as documented) at patient's floor/unit and/or counseling patient: Coding Level of Care Code 86779 Subseq Hosp Care Lvl 2 Diagnoses Demyelinating disease G37.9 Dural venous sinus thrombosis G08 Hypothyroidism E03.9 Facial droop R29.810 Right facial numbness R20.0
[2020-08-11] MEDS: CETIRIZINE HCL 10 MG TABLET PO SCH (08:21)
[2020-08-11] MEDS: methylPREDNISolone 1,000 MG in DEXTROSE 5% 250 ML IV SCH (08:21)
--- NOTE | 2020-08-11 12:32 | Neurology Consultation ---
Date of Consultation August 11, 2020 Assessment & Plan (1) Right facial numbness: 1. facial numbness and facial droop resolving. Present on Admission?: Yes (2) Demyelinating disease: 1. currently on methylprednisone IV 1 g x 3 days 2. will reassess as outpatient for direction of care- evaluation for LP once the coumadin is stopped. 3. referral will be placed to our MS specialist for her input 4. PT/OT for discharge needs- does not appear to be any current deficit 5. after IV for 3 days then discharge on prednisone 80 mg x 2 days, 60 mg x 2 days, 40 mg x 2 days, 30 mg x 2 days, 20 mg x 2 days, 10 mg x 2 days then stop 6. discharge to home will schedule follow up in our office Present on Admission?: Yes (3) Dural venous sinus thrombosis: 1. currently on coumadin for venous thrombus that was thought to be related to use of control. 2. work up for hypercoag issues was negative in the past. but the results were not clear will repeat in outpatient 3. stop coumadin at this time and left drift down Present on Admission?: Yes Supervising Physician Co-Signing Physician Notes I have seen and discussed above patient with Dr Jey Smith, neurology I know Annita fairly well from several outpatient video and [id number] visits. 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 They have Deshaun continue to show an irregularity in the joiner of the vessels and some sluggish flow also we agreed to keep her on Coumadin another 6 months and we were planning to stop it in September and perform another series of MR imaging including brain with and without contrast, MRV enterography without contrast and an MR with contrast of her cervical spine The latter was felt to be necessary because of the incidental finding of what I thought initially were asymptomatic demyelinating plaques in the upper cervical cord. There was also some nonspecific high T2 intensity signals with subcortical white matter and the possibility of asymptomatic demyelinating disease was being entertained as a diagnosis She now in retrospect gives a history of having bilateral numbness of her hands lasting several weeks about 7 years ago while in the that resolved when she was given steroids for concurrent back pain and also admits to some occasional paresthesias of her occipital scalp She now presents with a several day history of vertigo with strong elements of benign positional vertigo but then associated over the last 48 hours with paresthesias involving the right side of her face and some right facial asymmetry MR imaging has shown areas of enhancing plaque in the pontomedullary junction on the right, and the prior described cervical plaques along with some subcortical white matter lesions that are now in retrospect suspicious for multiple sclerosis and she is being treated appropriately with IV Solu-Medrol for next 3 days and then will be discharged with an oral tapering course She also has had imaging studies of her venous sinuses using CT technology and this shows again the irregularities but intact flow and there is no reason for us to continue the Coumadin any longer in light of this The working diagnosis here is obviously demyelinating disease of the multiple sclerosis type and I think she is probably had this for the last 7 or 8 years based on her history. She does have cervical cord plaque now an acute brainstem syndrome so she is going to need relatively aggressive disease modifying therapy after the course of IV Solu-Medrol and the oral prednisone taper We are going arrange for this to be done through our multiple sclerosis subspecialty clinic in [facility] The plan then is to continue the IV Solu-Medrol discharge her on oral tapering steroids, to stop the Coumadin, to have her follow-up in the coag clinic to be sure her INR is indeed back in the nonanticoagulated range in about a week if they feel this is necessary and to defer on the lumbar puncture issue to our multiple sclerosis team in [place] She should ideally also have a full blown hypercoagulability work-up done about 6 weeks after Coumadin is stopped so that any occult hypercoagulable state that might have been missed can be evaluated Jey Smith MD History of Present Illness Reason for Consultation: MS flare Requesting Physician: Irineo Niño MD Attending Physician: Irineo Vasquez MD History of Present Illness Annita is a 40 year old female with PMH dural venous thrombus in September 2019 (headache and blurry vision) suspected secondary to OCP use treated with warfarin initially plan for 6 months but she still remains on this. She Had multiple symptoms -tinnitus in her right ear for the past week and orthostatic dizziness especially when bending down to tie shoes. She called neurology and they recommended [facility] ED but she declined therefore they set her up with vestibular therapy. She then felt her lip numbness starting 2 days ago when she has progressively become more obvious and tingling on the top of her right forehead. Before coming to the ED she noticed the right side of her mouth drooping. Associated throat feeling dry however denies any loss of taste or change in tongue strength. She thinks she had an episode of some strange numbness years ago in her hands and back of neck. She has been on Coumadin for about 10 months post thrombus. There are no neurologic issues in her family accept parkinson's disease in her grandmother. denies N, V, eye pain, Lhermitte, one sided weakness. + numbness in back of her head and neck. Allergies Allergy/AdvReac Type Severity Reaction Status Date / Time pollen extracts Allergy Intermediate ITCHY, Verified 08/10/20 15:02 WATERY EYES, SNEEZING, CONGESTION Home Medications Medication Instructions Recorded Confirmed Type cetirizine [Zyrtec] 10 mg PO QAM 01/17/20 08/10/20 History levothyroxine 150 mcg PO DAILYBB 08/10/20 08/10/20 History warfarin See Rx Instructions .ROUTE .COMPLEX 08/10/20 08/10/20 History Patient History Medical History (Updated 08/10/20 @ 22:02 by oBb Alegre MD) Chronic back pain L4-L5 Dural venous sinus thrombosis Environmental and seasonal allergies Hypothyroidism Lumbar facet arthropathy Migraine Surgical History History of adenoidectomy History of section History of tonsillectomy Family History Grandmother (Maternal) Lymph node cancer Social History Smoking Status: Never smoker Second Hand Exposure: No; Do You Dip or Chew Tobacco: No; Hx Alcohol Use: No Hx Substance Use: No Preferred Language: Macedonian Communication Ability: Effective Multimedia Programmer Required: No Beliefs That Will Affect Care: None Current Living Situation: Legal Guardian Other Information That Helps Us Care for You: No Feels Safe at Home: Yes Safety Concerns: Feels Safe At This Time Assistive Devices: Glasses Review of Systems Review of Systems: All systems reviewed & are unremarkable except as noted in HPI & below Physical Exam Physical Exam: Physical Exam: Constitutional: appearance over nourished Ears, Nose, Mouth and Throat: mucous membranes moist, no injection and skin normal, eyes normal Cardiovascular: normal S-1 and S-2 and regular rate and rhythm Respiratory: clear to auscultation (CTA) and no rales, ronchi or wheeze Musculoskeletal: no peripheral edema and good distal pulses Skin: no stigmata of neurocutaneous disease flushing of face Eyes: extraocular muscles intact (EOMI) and pupils equal, round and reactive to light (PERRL) NEUROLOGIC EXAMINATION: Mental status: Alert and interactive Oriented to full date and location Oriented to person Speech fluent with no evidence of aphasia Cranial Nerves smile eye brow raise symmetric Reflexes: Deep tendon reflexes were symmetrical and brisk Sensory: light cool touch Coordination: Romberg absent Gait/Stance: Posture normal. Gait normal: with steady with steps, base walking and tandem gait. Motor: Negative for pronator drift of out stretched arms with eyes closed. Strength: hand specialty sales consultant biceps triceps bilaterally 5/5, hip flex patellar plantar flex ext 5/5 Results & Data ([facility]) Vital Signs (Past 12 Hours) Vital Signs Temp Pulse Pulse Resp BP Pulse Ox 08/11/20 11:12 36.7 C 95 H 20 110/74 90 08/11/20 07:28 119 H 133/81 08/11/20 07:26 36.7 C 93 H 20 100/65 95 08/11/20 07:00 95 H 08/11/20 03:29 36.6 C 94 H 18 95/65 L 94 Laboratory Results Abnormal lab results 08/10/20 08/10/20 08/10/20 Range/Units 13:10 13:10 13:10 Lymph # (Auto) 3.62 H (1.2-3.4) K/uL PT 22.2 H (9.0-12.0) Seconds INR 2.3 H (0.9-1.1) APTT 34.5 H (21.0-31.0) Seconds POC Total CO2 (24-31) mmol/L POC Anion Gap (16-25) mmol/L Glucose 126 H (70-99) mg/dl POC Glucose (other) (70-99) mg/dl Calcium 8.2 L (8.5-10.1) mg/dl Magnesium 1.7 L (1.8-2.4) mg/dl Alkaline Phosphatase 141 H (45-117) U/L Albumin 3.2 L (3.4-5.0) gm/dl Albumin/Globulin Ratio 0.8 L (0.9-2) 08/10/20 Range/Units 13:33 Lymph # (Auto) (1.2-3.4) K/uL PT (9.0-12.0) Seconds INR (0.9-1.1) APTT (21.0-31.0) Seconds POC Total CO2 23 L (24-31) mmol/L POC Anion Gap 15.0 L (16-25) mmol/L Glucose (70-99) mg/dl POC Glucose (other) 131 H (70-99) mg/dl Calcium (8.5-10.1) mg/dl Magnesium (1.8-2.4) mg/dl Alkaline Phosphatase (45-117) U/L Albumin (3.4-5.0) gm/dl Albumin/Globulin Ratio (0.9-2) Diagnostic Findings MRI brain/c spine-There is an 8 mm focus of T2 signal abnormality identified at the right pontomedullary junction. This demonstrates abnormal postcontrast enh ancement, and when correlated with the cervical spine findings likely represents a focus of active demyelination within a multiple sclerosis plaque. Follow-up with neurology is recommended, and repeat examination in 1-2 months is recommended to document resolution. There are additional scattered subcentimeter foci of T2 signal within the subcortical and periventricular white matter. A lesion in the right frontal lobe periventricular white matter also shows mild postcontrast enhancement. There are 2 additional T2 hyperintense lesions within the upper cervical cord, also likely representing foci of demyelination. There is no hemorrhage, mass effect, or evidence of acute ischemia.
[2020-08-11] MEDS ORDERED: WARFARIN SOD 7.5 MG TAB PO SCH (21:00)
[2020-08-12] MEDS: LEVOTHYROXINE SODIUM 150 MCG TABLET PO SCH (05:52)
[2020-08-12] MEDS: CETIRIZINE HCL 10 MG TABLET PO SCH (08:20)
[2020-08-12] MEDS: methylPREDNISolone 1,000 MG in DEXTROSE 5% 250 ML IV SCH (09:03)
--- NOTE | 2020-08-12 18:19 | Discharge Summary ---
Date of Service August 12, 2020 Admission HPI Per Admitting Provider Annita Su is a 40-year-old female with previous dural venous thrombus in September 2019 (headache and blurry vision) suspected secondary to OCP use treated with warfarin initially plan for 6 months but she still remains on this. She reports multiple symptoms starting with tinnitus in her right ear for the past week. This is associated with orthostatic dizziness especially when bending down to tie shoes. She denies any room spinning sensation. She called her neurology office and recommended going to the ER although she declined therefore they set her up with vestibular therapy which is still pending. In hindsight she realized she felt her lip numbness starting 2 days ago when she has progressively become more obvious. Yesterday she noticed tingling on the top of her right forehead. Today approximately 30 minutes before coming in she noticed the right side of her mouth drooping. Associated throat feeling dry however denies any loss of taste or change in tongue strength. No extremity weakness or change in sensation. No change in speech or vision. No difficulty closing her right eye. In the ER CT venogram showed small chronic nonocclusive changes only, CT head was unremarkable. She was referred to medicine for admission ongoing management of acute neurological deficit with right facial droop. Principal Diagnosis facial numbness demyelination seen on brain imaging possible multiple diagnosis Discharge Exam The patient appeared well Vital signs as documented. Lungs are clear to auscultation and appear unlabored Cardiac exam, Rhythm is regular.. No murmurs, rubs or gallops. Abdominal exam reveals normal bowel sounds, soft non tender, no masses Extremities are nonedematous and both pedal pulses are normal. Neurologic exam is alert and oriented, symptoms have resolved Skin is without bruises or rashes Psychologically is without concerns for anxiety or depression. Discharge Data Allergies Allergy/AdvReac Type Severity Reaction Status Date / Time pollen extracts Allergy Intermediate ITCHY, Verified 08/10/20 15:02 WATERY EYES, SNEEZING, CONGESTION Consultations 08/10/20 15:09 ED Decision to Admit Stat 08/10/20 21:31 Consult Neurology Routine Ordered Studies 08/10/20 13:20 CT head venogram w con Stat CT head/brain wo con Stat 08/10/20 16:20 MR brain MS wo/w con Stat 08/10/20 16:21 MR cervical spine wo/w con Stat Hospital Course (1) Demyelinating disease: Suspected based on MRI 08/10/20 IMPRESSION: 1. There is an 8 mm focus of T2 signal abnormality identified at the right pontomedullary junction. This demonstrates abnormal postcontrast enhancement, and when correlated with the cervical spine findings likely represents a focus of active demyelination within a multiple sclerosis plaque. Follow-up with neurology is recommended, and repeat examination in 1-2 months is recommended to document resolution. 2. There are additional scattered subcentimeter foci of T2 signal within the subcortical and periventricular white matter. A lesion in the right frontal lobe periventricular white matter also shows mild postcontrast enhancement. 3. There are 2 additional T2 hyperintense lesions within the upper cervical cord, also likely representing foci of demyelination. 4. There is no hemorrhage, mass effect, or evidence of acute ischemia. Solu-Medrol 1 g IV daily for 3 days.then taper as per Neurology recommendaiton 80 x2d, 60 x 2d 40x2d 20 x2d 10 x 2d Consult neurology - discussed Dr Talbert, stop warfarin, will coordinate outpt lp with ms clinic start low dose aspirin but will need to hold prior to lp (2) Dural venous sinus thrombosis: History of such. discontinue warfarin. Ct venogram head 08/10/20, IMPRESSION: 1. There is no hemorrhage, mass effect, or evidence of acute territorial ischemia by CT criteria. 2. The intracranial arteries are patent. 3. There is a small amount of chronic appearing and nonocclusive thrombus in the right transverse and sigmoid sinuses. 4. There is also nonocclusive thrombus within the right internal jugular vein at the skull base. This is also likely chronic. (3) Hypothyroidism: TSH unknown. We will repeat with a.m. labs. Continue levothyroxine 150 mcg p.o. daily (4) Facial droop: (5) Right facial numbness: Total Time Total Time Spent Total Time Spent (In Minutes): It required greater than 30 minutes to prepare this patient for discharge Discharge Plan Discharge Items Patient Disposition: Home - Self-Care Reason For Visit: MULTIPLE SCLEROSIS FLARE Discharge Diagnosis: facial numbness resolved with streid treatment demyelination seen on imaging possible multiple sclerosis flare Condition on Discharge: Good Activity: Resume your previous activity Non-emergency contact: Primary Care Provider and Neurologist Call non-emergency contact if: you have any medication questions and your symptoms worsen Follow-up/Referrals: Jey Smith MD [Physician] - (one two weeks) Zuri Fish [Primary Care Provider] - Diet: Regular Addtl Attending Provider Instructions: please stop your coumadin or warfarin start baby aspirin 08/13/20 please have your coumadin blood work checked 08/18/20, and one week after that. please have lab also send results to Jevon Smith and Nitish Please take famotidine 20 mg a day while on steroids and you may take it twice a day if you have stomach ache/pain while on that medication Pending Studies at Discharge: No Stand-Alone Forms: [facility], Work/School Release (Inpt), Smoking Cessation Medications and DC Order Prescriptions: New prednisone 10 mg tablet 10 mg PO UD Qty: 42 RF: 0 aspirin 81 mg tablet,chewable 81 mg PO DAILY Qty: 90 RF: 3 famotidine [Pepcid] 20 mg tablet 20 mg PO DAILY Qty: 60 RF: 3 Continued cetirizine [Zyrtec] 10 mg Tablet 10 mg PO QAM RF: 0 levothyroxine 150 mcg tablet 150 mcg PO DAILYBB RF: 0 Discontinued warfarin 5 mg tablet See Rx Instructions .ROUTE .COMPLEX RF: 0 Discharge Orders: Discharge Order (Routine); Ordered 08/12/20 Ordered By: Irineo Vasquez Admission Data Admit Date/Time: 08/10/20 19:51 Attending Provider: Irineo Vasquez Admit Provider: Bob Alegre Primary Care Provider: Zuri Fish Other Providers: Bob Alegre ; Jey Smith Other Interventions: Discharge Summary Assessment (RN) Last Done: 08/12/20 12:56 Coding Level of Care Code D/C Day Management >30 mins Diagnoses Demyelinating disease G37.9 Dural venous sinus thrombosis G08 Hypothyroidism E03.9 Facial droop R29.810 Right facial numbness R20.0
[2020-08-12] MEDS ORDERED: WARFARIN SOD 5 MG TAB PO SCH (21:00)
== END 2020-08-12 14:30 | disposition home or self-care (01) | DRG 59 ==
LOC: ED 12:59 → SUATTDRO 19:51 → 2N 19:51

== ENCOUNTER 2021-12-13 12:24 | Observation (INO) ==
[2021-12-13 13:07] LABS: iSTAT Creatinine 0.5 mg/dl (0.6-1.3); iSTAT Hemoglobin 14.3 g/dl (12.0-16.0); iSTAT Ionized Calcium 1.22 mmol/l (1.12-1.32); iSTAT Potassium 3.9 mmol/L (3.3-5.0)
[2021-12-13 13:11] LABS: Hematocrit (blood only) 42.3 % (34.1-44.9); Hemoglobin 14.2 g/dl (12.0-16.0); Mean Corpuscular Hemoglobin 31.9 pg (25.0-34.0); Mean Corpuscular Hgb Conc 33.6 g/dL (32.0-36.0); Mean Corpuscular Volume 95.1 fL (80.0-100.0); Mean Platelet Volume 10.1 fL (9.4-12.3); Platelet Count 279 K/uL (130-400); RDW Coefficient of Variation 12.3 % (11.5-14.5); RDW Standard Deviation 42.6 fL (36.4-46.3); Red Blood Count 4.45 M/uL (3.93-5.22); White Blood Count 5.25 K/ul (4.8-10.8)
--- NOTE | 2021-12-13 13:13 | Emergency Department Note ---
History of Present Illness General Chief complaint: Illness Stated complaint: FACIAL DROOP AND NUMBNESS,ARM NUMB AND TINGLING Time Seen by Provider: 12/13/21 12:52 Source: patient Mode of arrival: ambulatory Limitations: no limitations History of Present Illness Maximum Pain Intensity: 2 This patient is a 41-year-old female whose last known well was at 1145, comes in after noticing she had her left eye felt funny and strained and felt bloodshot it was slightly blurry like her perception seemed off she says her left face feels like it is numb and she said her said it was droopy earlier. She has no numbness or weakness the arms or legs although her left arm felt restless last night. She does have a history of MS and is questioning whether it could be an MS flareup she had 1 about a year ago which was similar but on the opposite side. She also has a history of having a dural sinus thrombosis in . She had been on anticoagulation but is not on anticoagulation. When she had that she had a severe headache and at present she has minimal headache. No difficulty speaking or swallowing. She was short of breath earlier but thinks it was anxiety. No chest pain denies has a normal period 1 week ago no blood or melena stool no fall or trauma. She is on no blood thinners. She is followed by Dr. Smith and also Dr. Sanches who is a neurology specialist with [facility] in [place]. Home Medications Medication Instructions Recorded Confirmed Type aspirin 81 mg chewable tablet 81 mg PO DAILY #90 tabs 08/12/20 12/13/21 Rx diroximel fumarate 231 mg 462 mg PO BID 12/13/21 12/13/21 History capsule,delayed release (Vumerity) levothyroxine 175 mcg tablet 175 mcg PO DAILYBB 12/13/21 12/13/21 History Allergies Allergy/AdvReac Type Severity Reaction Status Date / Time pollen extracts Allergy Intermediate ITCHY, Verified 12/13/21 15:03 WATERY EYES, SNEEZING, CONGESTION Past Med/Surg History Medical History (Updated 12/13/21 @ 18:29 by Gualberto Maldonado MD) Chronic back pain L4-L5 Dural venous sinus thrombosis Environmental and seasonal allergies Hypothyroidism Lumbar facet arthropathy Migraine Surgical History History of adenoidectomy History of section History of tonsillectomy Family History Grandmother (Maternal) Lymph node cancer Social History Smoking Status: Never smoker Second Hand Exposure: No; Hx Alcohol Use: No Hx Substance Use: No Preferred Language: Malay Communication Ability: Effective Ux Ui Designer Required: No Beliefs That Will Affect Care: None Current Living Situation: Spouse Feels Safe at Home: Yes Assistive Devices: Glasses Review of Systems A total of 10 systems reviewed and were otherwise negative Physical Exam Vital Signs Vital Signs - 24 hr 12/13/21 12:35 12/13/21 12:40 12/13/21 12:40 Temperature 36.8 C Temperature Source Temporal Artery Scan Pulse Rate 88 Pulse Rate [Apical] Pulse Rate from SpO2 Sensor Pulse Rhythm Regular Pulse Rhythm [Apical] Pulse Strength [Apical] Respiratory Rate 20 Respiratory Effort / Characteristics Non-Labored Respiratory Depth Normal Respiratory Pattern Blood Pressure 117/84 Blood Pressure [Left Arm] Blood Pressure Mean 95 Blood Pressure Mean [Left Arm] Blood Pressure Position [Left Arm] Pulse Oximetry 98 Oxygen Delivery Method Room Air Room Air Room Air Sepsis Recent Fever Within 48 Hours No Sepsis New/Unexplained Change in Mental Status Yes Sepsis Action Taken by Nursing No Action Required 12/13/21 14:00 12/13/21 12:58 12/13/21 13:00 Temperature Temperature Source Pulse Rate 91 H 85 Pulse Rate [Apical] 70 Pulse Rate from SpO2 Sensor 91 H 86 Pulse Rhythm Pulse Rhythm [Apical] Regular Pulse Strength [Apical] Normal Respiratory Rate 14 16 19 Respiratory Effort / Characteristics Non-Labored Spontaneous Respiratory Depth Normal Respiratory Pattern Regular Blood Pressure Blood Pressure [Left Arm] 139/87 Blood Pressure Mean Blood Pressure Mean [Left Arm] 104 Blood Pressure Position [Left Arm] Lying Pulse Oximetry 99 98 99 Oxygen Delivery Method Room Air Sepsis Recent Fever Within 48 Hours Sepsis New/Unexplained Change in Mental Status Sepsis Action Taken by Nursing 12/13/21 13:18 12/13/21 13:18 12/13/21 13:30 Temperature Temperature Source Pulse Rate Pulse Rate [Apical] Pulse Rate from SpO2 Sensor 90 Pulse Rhythm Pulse Rhythm [Apical] Pulse Strength [Apical] Respiratory Rate Respiratory Effort / Characteristics Respiratory Depth Respiratory Pattern Blood Pressure 112/78 112/69 Blood Pressure [Left Arm] Blood Pressure Mean 89 83 Blood Pressure Mean [Left Arm] Blood Pressure Position [Left Arm] Pulse Oximetry 98 Oxygen Delivery Method Sepsis Recent Fever Within 48 Hours Sepsis New/Unexplained Change in Mental Status Sepsis Action Taken by Nursing 12/13/21 13:30 12/13/21 14:00 12/13/21 14:00 Temperature Temperature Source Pulse Rate Pulse Rate [Apical] Pulse Rate from SpO2 Sensor 81 83 Pulse Rhythm Pulse Rhythm [Apical] Pulse Strength [Apical] Respiratory Rate Respiratory Effort / Characteristics Respiratory Depth Respiratory Pattern Blood Pressure 139/87 Blood Pressure [Left Arm] Blood Pressure Mean 104 Blood Pressure Mean [Left Arm] Blood Pressure Position [Left Arm] Pulse Oximetry 98 96 Oxygen Delivery Method Sepsis Recent Fever Within 48 Hours Sepsis New/Unexplained Change in Mental Status Sepsis Action Taken by Nursing 12/13/21 14:15 Temperature Temperature Source Pulse Rate Pulse Rate [Apical] Pulse Rate from SpO2 Sensor 72 Pulse Rhythm Pulse Rhythm [Apical] Pulse Strength [Apical] Respiratory Rate Respiratory Effort / Characteristics Respiratory Depth Respiratory Pattern Blood Pressure Blood Pressure [Left Arm] Blood Pressure Mean Blood Pressure Mean [Left Arm] Blood Pressure Position [Left Arm] Pulse Oximetry 98 Oxygen Delivery Method Sepsis Recent Fever Within 48 Hours Sepsis New/Unexplained Change in Mental Status Sepsis Action Taken by Nursing General: Well developed well nourished in no acute distress, breathing comfortably on room air. Normal speech. Alert on x3 answers all questions appropriately HEENT: Normal cephalic atraumatic. Pupils are equal round and reactive to light. Extraocular movements are intact. Oropharynx is pink with moist mucous membranes. No swelling of the mouth lips or tongue. Neck: Supple with a midline trachea. No meningeal signs or stiffness, no JVD or bruits. No Stridor. Chest: Clear to auscultation bilaterally. No wheezes or rhonchi. No increased work of breathing. Heart: Regular rate and rhythm without murmurs or gallops. Abdomen: Soft nontender, nondistended without rebound guarding or rigidity. Extremities: No cyanosis clubbing or edema. No calf tenderness or assymetry Spine/Back. Non tender to palpation. No CVA tenderness Skin: Good turgor without rashes. Neurologic exam: Cranial nerves two through 12 are intact. Motor and sensation are intact and symmetrical throughout. There is no facial asymmetry or droop. Subjectively she feels some numbness in her left cheek and forehead but has normal motor in those areas. No pronator drift. No tremor. Course Administered Medications Discontinued Medications Ioversol (Optiray 320 125ml) 120 ml IV ONCE ONE Stop: 12/13/21 13:18 Last Admin: 12/13/21 13:18 Dose: 120 ml Documented By: GENNY Medical Decision Making Differential Diagnosis Stroke, TIA, MS, migraine, dural sinus thrombosis, electrolyte or metabolic abnormality, cardiac disease, infection Medical Records Attestation: I reviewed the patient's medical records. Home Medications Current Medication List: was personally reviewed by me Laboratory Data Attestation: I reviewed the patient's lab results. Result diagrams: 12/13/21 12:50 12/13/21 12:50 Lab Results 12/13/21 12/13/21 12/13/21 Range/Units 12:50 12:50 12:50 WBC 5.25 (4.8-10.8) K/ul RBC 4.45 (3.93-5.22) M/uL Hgb 14.2 (12.0-16.0) g/dl POC Hgb (12.0-16.0) g/dl Hct 42.3 (34.1-44.9) % POC Hct (37-47) % MCV 95.1 (80.0-100.0) fL MCH 31.9 (25.0-34.0) pg MCHC 33.6 (32.0-36.0) g/dL RDW Std Deviation 42.6 (36.4-46.3) fL RDW Coeff of Pilar 12.3 (11.5-14.5) % Plt Count 279 (130-400) K/uL MPV 10.1 (9.4-12.3) fL PT 10.6 (9.0-12.0) Seconds INR 1.0 (0.9-1.1) APTT 23.8 (21.0-31.0) Seconds PTT Ratio 0.9 POC Sodium (135-144) mmol/L Sodium 137 (136-145) mmol/L POC Potassium (3.3-5.0) mmol/L Potassium 3.8 (3.5-5.1) mmol/L POC Chloride (101-112) mmol/L Chloride 106 (98-107) mmol/L Carbon Dioxide 24 (21-32) mmol/L POC Total CO2 (24-31) mmol/L Anion Gap 7 (3-11) POC Anion Gap (16-25) mmol/L POC BUN (7-18) mg/dl BUN 8 (6-23) mg/dl Creatinine 0.58 L (0.6-1.2) mg/dl POC Creatinine (0.6-1.3) mg/dl Est Cr Clr Drug Dosing 147.1 ml/min Est GFR ( Amer) 130.8 ml/min Est GFR (Non-Af Amer) 112.9 ml/min BUN/Creatinine Ratio 13.8 (10-20) Glucose 109 H (70-99(Fasting)) mg/dl POC Glucose (70-99) mg/dl POC Glucose (other) (70-99) mg/dl Calcium 8.7 (8.5-10.1) mg/dl POC Ioniz Calcium Maylin (1.12-1.32) mmol/l Magnesium 1.7 (1.7-2.4) mg/dl Total Bilirubin 0.3 (0.2-1.0) mg/dl AST 21 (13-39) U/L ALT 35 (7-52) U/L Alkaline Phosphatase 69 (34-104) U/L Troponin I High Sens (0-14) pg/ml Total Protein 7.0 (6.0-8.3) gm/dl Albumin 4.0 (3.4-5.0) gm/dl Globulin 3.0 (2.5-4.0) gm/dl Albumin/Globulin Ratio 1.3 (0.9-2) HCG, Qual (Negative) SARS-CoV-2, RNA, NAAT (NEGATIVE) 12/13/21 12/13/21 12/13/21 Range/Units 12:50 12:50 12:54 WBC (4.8-10.8) K/ul RBC (3.93-5.22) M/uL Hgb (12.0-16.0) g/dl POC Hgb 14.3 (12.0-16.0) g/dl Hct (34.1-44.9) % POC Hct 42 (37-47) % MCV (80.0-100.0) fL MCH (25.0-34.0) pg MCHC (32.0-36.0) g/dL RDW Std Deviation (36.4-46.3) fL RDW Coeff of Pilar (11.5-14.5) % Plt Count (130-400) K/uL MPV (9.4-12.3) fL PT (9.0-12.0) Seconds INR (0.9-1.1) APTT (21.0-31.0) Seconds PTT Ratio POC Sodium 141 (135-144) mmol/L Sodium (136-145) mmol/L POC Potassium 3.9 (3.3-5.0) mmol/L Potassium (3.5-5.1) mmol/L POC Chloride 104 (101-112) mmol/L Chloride (98-107) mmol/L Carbon Dioxide (21-32) mmol/L POC Total CO2 24 (24-31) mmol/L Anion Gap (3-11) POC Anion Gap 17.0 (16-25) mmol/L POC BUN 6 L (7-18) mg/dl BUN (6-23) mg/dl Creatinine (0.6-1.2) mg/dl POC Creatinine 0.5 L (0.6-1.3) mg/dl Est Cr Clr Drug Dosing ml/min Est GFR ( Amer) ml/min Est GFR (Non-Af Amer) ml/min BUN/Creatinine Ratio (10-20) Glucose (70-99(Fasting)) mg/dl POC Glucose (70-99) mg/dl POC Glucose (other) 115 H (70-99) mg/dl Calcium (8.5-10.1) mg/dl POC Ioniz Calcium Maylin 1.22 (1.12-1.32) mmol/l Magnesium (1.7-2.4) mg/dl Total Bilirubin (0.2-1.0) mg/dl AST (13-39) U/L ALT (7-52) U/L Alkaline Phosphatase (34-104) U/L Troponin I High Sens < 2.3 (0-14) pg/ml Total Protein (6.0-8.3) gm/dl Albumin (3.4-5.0) gm/dl Globulin (2.5-4.0) gm/dl Albumin/Globulin Ratio (0.9-2) HCG, Qual Negative (Negative) SARS-CoV-2, RNA, NAAT (NEGATIVE) 12/13/21 12/13/21 Range/Units 13:25 14:15 WBC (4.8-10.8) K/ul RBC (3.93-5.22) M/uL Hgb (12.0-16.0) g/dl POC Hgb (12.0-16.0) g/dl Hct (34.1-44.9) % POC Hct (37-47) % MCV (80.0-100.0) fL MCH (25.0-34.0) pg MCHC (32.0-36.0) g/dL RDW Std Deviation (36.4-46.3) fL RDW Coeff of Pilar (11.5-14.5) % Plt Count (130-400) K/uL MPV (9.4-12.3) fL PT (9.0-12.0) Seconds INR (0.9-1.1) APTT (21.0-31.0) Seconds PTT Ratio POC Sodium (135-144) mmol/L Sodium (136-145) mmol/L POC Potassium (3.3-5.0) mmol/L Potassium (3.5-5.1) mmol/L POC Chloride (101-112) mmol/L Chloride (98-107) mmol/L Carbon Dioxide (21-32) mmol/L POC Total CO2 (24-31) mmol/L Anion Gap (3-11) POC Anion Gap (16-25) mmol/L POC BUN (7-18) mg/dl BUN (6-23) mg/dl Creatinine (0.6-1.2) mg/dl POC Creatinine (0.6-1.3) mg/dl Est Cr Clr Drug Dosing ml/min Est GFR ( Amer) ml/min Est GFR (Non-Af Amer) ml/min BUN/Creatinine Ratio (10-20) Glucose (70-99(Fasting)) mg/dl POC Glucose 87 (70-99) mg/dl POC Glucose (other) (70-99) mg/dl Calcium (8.5-10.1) mg/dl POC Ioniz Calcium Maylin (1.12-1.32) mmol/l Magnesium (1.7-2.4) mg/dl Total Bilirubin (0.2-1.0) mg/dl AST (13-39) U/L ALT (7-52) U/L Alkaline Phosphatase (34-104) U/L Troponin I High Sens (0-14) pg/ml Total Protein (6.0-8.3) gm/dl Albumin (3.4-5.0) gm/dl Globulin (2.5-4.0) gm/dl Albumin/Globulin Ratio (0.9-2) HCG, Qual (Negative) SARS-CoV-2, RNA, NAAT NEGATIVE (NEGATIVE) Imaging Data Attestation: I personally reviewed and interpreted this imaging study as follows: My Impression: Head CTno acute hemorrhage or mass-effect seen Radiologist's Impression: Head CT 12/13/21 13:05 CT head/brain wo con CLINICAL HISTORY: 41 years-old Female with left facial numbness. Acute strokelike symptoms with left-sided facial numbness TECHNIQUE: Multiple axial CT images of the head were obtained without contrast. A dose lowering technique was utilized adhering to the principles of ALARA. COMPARISON: CTA head and neck of same day. FINDINGS: No acute intracranial hemorrhage, midline shift, intracranial mass, hydrocephalus, territorial ischemia or abnormal extra-axial collection. Mild involutional changes of the frontal lobes. The calvarium is intact. Bilateral jeff bullosa. Mastoid air cells are clear. Mild mucosal thickening of the sphenoid sinus. IMPRESSION: No acute intracranial abnormality. ACT 112: Negative or not required by law. The above report was generated using voice recognition software. It may contain grammatical, syntax or spelling errors. Electronically signed by: Augustine Farmer M.D. 12/13/2021 1:26 PM Head CTA 12/13/21 13:05 CT angio neck with con, CT angio head w con CLINICAL HISTORY: 41 years-old Female with left facial numbness. Acute strokelike symptoms COMPARISON STUDY: Head CT of same day TECHNIQUE: Following the IV administration of 1 20 mL of Optiray, CT angiogram of the head and neck was performed from the aortic arch to the skull apex. Images are reviewed in the axial, sagittal, and coronal planes. 3-D MIPS images are created and assessed. IV contrast was administered without complication. All measurements were calculated based on NASCET criteria. A dose lowering technique was utilized adhering to the principles of ALARA. CT DOSE: 1046.09 mGy.cm FINDINGS: Bovine morphology of the thoracic aortic arch. Patency of the innominate and imaged subclavian arteries. Patent common and internal carotid arteries. The middle and anterior cerebral arteries are patent. Codominant and patent vertebral arteries. The basilar and posterior cerebral arteries are patent. There is origin of the left posterior cerebral artery. Cerebral venous sinuses are patent. No abnormal intracranial enhancement. Lung apices are clear without pneumothorax. Unremarkable soft tissues. No acute fracture. Mild mucosal thickening of the left sphenoid sinus. IMPRESSION:Unremarkable CTA of the head and neck. ACT 112: Negative or not required by law. The above report was generated using voice recognition software. It may contain grammatical, syntax or spelling errors. Electronically signed by: Augustine Farmer M.D. 12/13/2021 1:32 PM Neck CTA 12/13/21 13:05 CT angio neck with con, CT angio head w con CLINICAL HISTORY: 41 years-old Female with left facial numbness. Acute strokelike symptoms COMPARISON STUDY: Head CT of same day TECHNIQUE: Following the IV administration of 1 20 mL of Optiray, CT angiogram of the head and neck was performed from the aortic arch to the skull apex. Images are reviewed in the axial, sagittal, and coronal planes. 3-D MIPS images are created and assessed. IV contrast was administered without complication. All measurements were calculated based on NASCET criteria. A dose lowering technique was utilized adhering to the principles of ALARA. CT DOSE: 1046.09 mGy.cm FINDINGS: Bovine morphology of the thoracic aortic arch. Patency of the innominate and imaged subclavian arteries. Patent common and internal carotid arteries. The middle and anterior cerebral arteries are patent. Codominant and patent vertebral arteries. The basilar and posterior cerebral arteries are patent. There is origin of the left posterior cerebral artery. Cerebral venous sinuses are patent. No abnormal intracranial enhancement. Lung apices are clear without pneumothorax. Unremarkable soft tissues. No acute fracture. Mild mucosal thickening of the left sphenoid sinus. IMPRESSION:Unremarkable CTA of the head and neck. ACT 112: Negative or not required by law. The above report was generated using voice recognition software. It may contain grammatical, syntax or spelling errors. Electronically signed by: Augustine Farmer M.D. 12/13/2021 1:32 PM ECG Data Attestation: I personally reviewed and interpreted this ECG as follows: Indication: + weakness Rate (beats per minute): 80 Rhythm: + normal sinus ECG Intervals/blocks: + Normal QRS, + Normal QT and + Normal TX ECG [place]: + Left axis deviation ECG ST segments: + Normal ST segments ECG Findings: no PACs or no PVCs Comparison ECG Date: from (08/10/20) Change: no significant change MDM Narrative This patient comes in as described above. She was placed on a property assessment monitor room a 11 when I saw her she does look well and has minimal symptoms with just some numbness of her left face she has however just over an hour into this scenario. Based on this I did call a stroke alert. She does have multiple confounding factors that could be causing the symptoms such as MS. I do not think is likely her dural sinus thrombosis. She also says history of migraine. I did talk to Dr. Guy from [facility]. He agrees that this is most likely an MS flare given that she had a similar episode on the opposite side a couple months ago but agrees with doing the stroke work-up and he is going to see her in the stroke telemetry cart. The patient's neuroimaging came back without any acute findings there is noes suggestion of acute stroke or thrombosis. The venous system looks normal. She has no significant abno rmalities her blood work. She is nothing to suggest arrhythmia. The stroke neurologist Dr. Guy, agrees that she does not meet tPA criteria as her symptoms are very mild with a stroke scale of 1 or less and likely due to MS. There is not risk benefit of giving her the tPA at this point. He does feel we should admit the patient for further treatment evaluation and get MRIs of her brain with and without contrast as well as MRIs of the optic nerve. I have discussed the case with Dr. Howard, who is on for [facility], and the patient will be admitted/observed. Continuous cardiac monitoring: An order was placed in EMR for continuous cardiac monitoring. Upon my interpretation the patient was in normal sinus rhythm with a rate of 74. Impression & Plan Left facial numbness, Neurologic disorder, Demyelinating disease, Lab test negative for COVID-19 virus, Not currently Discharge Plan Visit Data Chief Complaint: Illness Stated Complaint: FACIAL DROOP AND NUMBNESS,ARM NUMB AND TINGLING ED Provider: Gualberto Maldonado Discharge Problem: Left facial numbness, Neurologic disorder, Demyelinating disease, Lab test negative for COVID-19 virus, Not currently
[2021-12-13] MEDS ORDERED: OPTIRAY 320 125ml IV ONE (13:17)
--- NOTE | 2021-12-13 13:27 | CT Scan Report ---
CT head/brain wo con CLINICAL HISTORY: 41 years-old Female with left facial numbness. Acute strokelike symptoms with left -sided facial numbness TECHNIQUE: Multiple axial CT images of the head were obtained without contrast. A dose lowering tech nique was utilized adhering to the principles of ALARA. COMPARISON: CTA head and neck of same day. FINDINGS: No acute intracranial hemorrhage, midline shift, intracranial mass, hydrocephalus, territorial ischem ia or abnormal extra-axial collection. Mild involutional changes of the frontal lobes. The calvarium is intact. Bilateral jeff bullosa. Mastoid air cells are clear. Mild mucosal thicken ing of the sphenoid sinus. IMPRESSION: No acute intracranial abnormality. ACT 112: Negative or not required by law. The above report was generated using voice recognition software. It may contain grammatical, syntax o r spelling errors. Electronically signed by: Augustine Farmer M.D. 12/13/2021 1:26 PM
[2021-12-13 13:32] LABS: Partial Thromboplastin Ratio 0.9; Partial Thromboplastin Time 23.8 Seconds (21.0-31.0); Prothrombin Time 10.6 Seconds (9.0-12.0)
--- NOTE | 2021-12-13 13:34 | CT Scan Report ---
CT angio neck with con, CT angio head w con CLINICAL HISTORY: 41 years-old Female with left facial numbness. Acute strokelike symptoms COMPARISON STUDY: Head CT of same day TECHNIQUE: Following the IV administration of 1 20 mL of Optiray, CT angiogram of the head and neck w as performed from the aortic arch to the skull apex. Images are reviewed in the axial, sagittal, and coronal planes. 3-D MIPS images are created and assessed. IV contrast was administered without compli cation. All measurements were calculated based on NASCET criteria. A dose lowering technique was uti lized adhering to the principles of ALARA. CT DOSE: 1046.09 mGy.cm FINDINGS: Bovine morphology of the thoracic aortic arch. Patency of the innominate and imaged subclavian arteri es. Patent common and internal carotid arteries. The middle and anterior cerebral arteries are patent . Codominant and patent vertebral arteries. The basilar and posterior cerebral arteries are patent. T here is origin of the left posterior cerebral artery. Cerebral venous sinuses are patent. No ab normal intracranial enhancement. Lung apices are clear without pneumothorax. Unremarkable soft tissues. No acute fracture. Mild mucosa l thickening of the left sphenoid sinus. IMPRESSION:Unremarkable CTA of the head and neck. ACT 112: Negative or not required by law. The above report was generated using voice recognition software. It may contain grammatical, syntax o r spelling errors. Electronically signed by: Augustine Farmer M.D. 12/13/2021 1:32 PM
[2021-12-13 13:36] LABS: Albumin Globulin Ratio 1.3 (0.9-2); BUN Creatinine Ratio 13.8 (10-20); Bilirubin,Total 0.3 mg/dl (0.2-1.0); Calcium 8.7 mg/dl (8.5-10.1); Creatinine Clr Calc Pharmacy 147.1 ml/min; Est GFR (African American) 130.8 ml/min; Est GFR (Non-African American) 112.9 ml/min; Magnesium 1.7 mg/dl (1.7-2.4); Potassium 3.8 mmol/L (3.5-5.1)
[2021-12-13 14:02] LABS: Pregnancy Test, Serum Negative (Negative)
--- NOTE | 2021-12-13 14:24 | History & Physical Report ---
Date of Service December 13, 2021 Assessment & Plan (1) Demyelinating disease: Plan: Annita is a 41-year-old female with a history of dural sinus thrombosis in 2019 no longer on anticoagulation, migraines, and a history of MS diagnosed 1 year ago who presents with sudden onset of left facial numbness and a qualitative feeling of her vision being off which started at 1145 this morning. She was admitted as a stroke alert, telestroke was consulted and did not recommend thrombolytics. Suspect possible MS flare, with differential including migraine. Recommended for MRI with and without contrast. Left-sided facial numbness, admitted a stroke alert. History of MS -CThead: No acute findings -CTAhead: Unremarkable CTA of the head and neck. Of note cerebral venous sinuses are patent, no evidence for recurrent dural sinus thrombosis Last on methylprednisolone 08/11/2020, was converted to prednisone and then taper down and discontinue at that time No leukocytosis Hemoglobin normal Creatinine normal POC glucose 87 No transaminitis hCG negative Troponin pending, no acute EKG abnormalities - Stroke alert, TNKase not recommended. Recommended for opthomology eval tomorrow after MRI complete MRI with and without contrast pending of brain/orbits Continue aspirin daily History of intermittent headache and blurry vision. Has had intermittent neuro symptoms including right ear tinnitus, orthostatic dizziness, lip numbness, right forehead numbness, transient right mouth droop, hands and posterior neck numbness all intermittently over the past several years. Continue Vumerity - Defer steroids pending MRI History of dural sinus thrombosis Last seen by neuro 08/11/2020 Was treated with warfarin, was extended with treatment by 6 months. Ultimately discontinued 08/12/[address] venogram Assessment at that time showed asymptomatic demyelinating plaques of the upper cervical cord suspicious for demyelinating disease/MS Reports had an anticoagulation workup in [place] which was normal per patient, but has not followed up on this since with the Neurologist since Hypothyroidism Continue Synthroid. Dose 175mcg confirmed with pt TSH pending DVT PPx: Heparin Diet: Regular, if OK with bedside swallow CODE: Full Dispo: Med Tele whil sherry post stroke eval, likely downgrade to Med/Surg tomorrow (2) Neurologic disorder: (3) Hypothyroidism: (4) Lumbar facet arthropathy: (5) Dural venous sinus thrombosis: History of Present Illness Primary Care Provider: Zuri Ariza is a 41-year-old female with a history of dural sinus thrombosis in 2019 no longer on anticoagulation, migraines, and a history of MS diagnosed 1 year ago who presents with sudden onset of left facial numbness and a qualitative fe eling of her vision being off which started at 1145 this morning. She was admitted as a stroke alert, telestroke was consulted and did not recommend thrombolytics. Suspect possible MS flare, with differential including migraine. Recommended for MRI with and without contrast. L eye, nose, lip numbness/tingling and facial asymmetry this morning has ismilar sx las tyear with initial MS presentation At the time her vision felt strained and slightly pixelated, but no darkening or loss of vision. Vision felt a little similar to migraines in the past, but has not has the numbness tingling. No attempted x for this. Sx improving, but not yet resolved No chest pain, chest pressure, fluttering, palpitations, shortness of breath, fever, chills, or sweats. No recent illnesses Follows with Dr. Stephenson in [facility]. Vumerity [id number] tablets in AM and night. Used to ttake excedrin. No current steroid use. Last took prednisone august of last year with her flare. Takes synthroid 175mcg Medical History: Reviewed Medications: Reviewed Surgical History: Reviewed Allergies: Reviewed Social History: No tobacco, rare social etoh use. No MM use. Code Status: Full Code Allergies Allergy/AdvReac Type Severity Reaction Status Date / Time pollen extracts Allergy Intermediate ITCHY, Verified 08/27/20 08:13 WATERY EYES, SNEEZING, CONGESTION Home Medications Medication Instructions Recorded Confirmed Type cetirizine 10 mg tablet (Zyrtec) 10 mg PO QAM 01/17/20 08/27/20 History levothyroxine 150 mcg tablet 150 mcg PO DAILYBB 08/10/20 08/27/20 History aspirin 81 mg chewable tablet 81 mg PO DAILY #90 tabs 08/12/20 08/27/20 Rx famotidine 20 mg tablet (Pepcid) 20 mg PO DAILY #60 tabs 08/12/20 08/27/20 Rx prednisone 10 mg tablet 10 mg PO UD #42 tabs 08/12/20 08/27/20 Rx Past Med/Surg History Medical History (Updated 12/13/21 @ 14:45 by Jorge Osei MD) Chronic back pain L4-L5 Dural venous sinus thrombosis Environmental and seasonal allergies Hypothyroidism Lumbar facet arthropathy Migraine Surgical History History of adenoidectomy History of section History of tonsillectomy Family History Grandmother (Maternal) Lymph node cancer Social History Smoking Status: Never smoker Second Hand Exposure: No; Hx Alcohol Use: No Hx Substance Use: No Preferred Language: Somali Communication Ability: Effective Fabric Finisher Required: No Beliefs That Will Affect Care: None Current Living Situation: Spouse Feels Safe at Home: Yes Assistive Devices: Glasses Review of Systems Review of Systems: All systems reviewed & are unremarkable except as noted in Subjective Physical Exam Physical Exam: General: A&Ox3. NAD. Cooperative. HEENT: Atraumatic, normocephalic. Pulm: CTAB A&P. -wheezes, -rales, -rhonchi. Symmetrical chest rise. No increased work of breathing. No respiratory distress. Cardiac: RRR, -mrg. Radial pulses intact and symmetrical. Abdominal: Nontender, nondistended, soft. BS present. CRANIAL NERVES: II: Pupils equal and reactive, no relative afferent pupillary defect, no VF cuts III, IV, : EOM intact, no gaze preference or deviation, no nystagmus. V:R diminished sensation to temperature & soft touch in V1-V3. VII: R nostil lower, trace R lip droop, improving VIII: normal hearing to speech IX, X: normal palatal elevation, no uvular deviation XI: 5/5 head turn and 5/5 shoulder shrug bilaterally XII: midline tongue protrusion MOTOR: RUE: 5/5 Shoulder internal rotation, external rotation, flexion, extension, abduction, adduction 5/5 Elbow flexion/extension, wrist flexion/extension 5/5 traveling construction superintendent strength, finger flexion/extension, interosseus LUE: 5/5 Shoulder internal rotation, external rotation, flexion, extension, abduction, adduction 5/5 Elbow flexion/extension, wrist flexion/extension 5/5 traveling construction superintendent strength, finger flexion/extension, interosseus RLE: 5/5 to hip flexion/extension, knee flexion/extension, ankle dorsiflexion/plantarflexion LLE: 5/5 to hip flexion/extension, knee flexion/extension, ankle dorsiflexion/plantarflexion REFLEXES: 2/4 patellar, bicepts, DTR without asymmetry. no clonus SENSORY: Normal to touch, pinprick, vibration, temp in upper and lower extremities without deficit or asymmetry COORD: Normal finger to nose Results & Data Results & Data ([facility]) Vital Signs (Past 12 Hours) Vital Signs Temp Pulse Resp BP Pulse Ox O2 Del Method 12/13/21 12:40 Room Air 12/13/21 12:40 Room Air 12/13/21 12:35 36.8 C 88 20 117/84 98 Room Air PG Care Time/CCT Total # of Minutes Spent Total Time Spent with Patient: Total time spent is greater than 50% in coordination of care (as documented) at patient's floor/unit and/or counseling patient: Coding Level of Care Code 88743 Initial Inpt Care Lvl 2 Diagnoses Demyelinating disease G37.9 Neurologic disorder G98.8 Hypothyroidism E03.9 Lumbar facet arthropathy M47.816 Dural venous sinus thrombosis G08
[2021-12-13] MEDS ORDERED: PHARMACIST DISCHARGE MED REC CONSULT PRN (17:42)
[2021-12-13] MEDS ORDERED: ONDANSETRON INJ 2 MG/ML 2 ML VIAL IV PRN (17:42)
[2021-12-13] MEDS ORDERED: ACETAMINOPHEN 325 MG TAB PO PRN (17:42)
[2021-12-13] MEDS ORDERED: ASPIRIN 81 MG CHEW PO ONE (18:00)
[2021-12-13] MEDS: HEPARIN SOD 5,000 UNIT/0.5 ML VIAL SQ SCH (22:25)
[2021-12-13] MEDS ORDERED: GADOBUTROL 65ML VIAL IV ONE (22:26)
[2021-12-13] MEDS: TRIAMCINOLONE ACET 0.1% CR 15 GM TUBE EXT PRN (22:27)
[2021-12-14] MEDS: HEPARIN SOD 5,000 UNIT/0.5 ML VIAL SQ SCH (05:54)
[2021-12-14 05:58] LABS: Basophils # (auto) 0.04 K/uL (0-0.2); Basophils % (auto) 0.8 %; Eosinophils # (auto) 0.29 K/uL (0-0.50); Eosinophils % (auto) 5.9 %; Hematocrit (blood only) 39.4 % (34.1-44.9); Hemoglobin 13.1 g/dl (12.0-16.0); Immature Granulocytes # (auto) 0.01 K/uL (0.00-0.02); Immature Granulocytes % (auto) 0.2 %; Lymphocytes # (auto) 1.55 K/uL (1.2-3.4); Lymphocytes % (auto) 31.4 %; Mean Corpuscular Hemoglobin 32.3 pg (25.0-34.0); Mean Corpuscular Hgb Conc 33.2 g/dL (32.0-36.0); Mean Corpuscular Volume 97.3 fL (80.0-100.0); Mean Platelet Volume 9.9 fL (9.4-12.3); Monocytes % (auto) 10.1 %; Neutrophils # (auto) 2.54 K/uL (1.4-6.5); Neutrophils % (auto) 51.6 %; Platelet Count 258 K/uL (130-400); RDW Coefficient of Variation 12.4 % (11.5-14.5); RDW Standard Deviation 43.3 fL (36.4-46.3); Red Blood Count 4.05 M/uL (3.93-5.22); White Blood Count 4.93 K/ul (4.8-10.8)
[2021-12-14] MEDS: TRIAMCINOLONE ACET 0.1% CR 15 GM TUBE EXT PRN (05:58)
--- NOTE | 2021-12-14 06:20 | Electrocardiogram Report ---
Test Reason : Blood Pressure : / mmHG Vent. Rate : 080 BPM Atrial Rate : 080 BPM P-R Int : 168 ms QRS Dur : 094 ms QT Int : 372 ms P-R-T Axes : 026 -32 043 degrees QTc Int : 429 ms Normal sinus rhythm Left axis deviation Nonspecific T wave abnormality Abnormal ECG When compared with ECG of 10-AUG-2020 13:29, No significant change was found Confirmed by Mirza Tamayo ([id number]) on 12/14/2021 6:19:45 AM Referred By: REFERRED SELF Confirmed By:Miraz Tamayo
[2021-12-14 06:22] LABS: BUN Creatinine Ratio 17.2 (10-20); Calcium 8.4 mg/dl (8.5-10.1); Chol HDL Ratio 4.9 (0-5); Creatinine Clr Calc Pharmacy 133.3 ml/min; Est GFR (African American) 126.7 ml/min; Est GFR (Non-African American) 109.3 ml/min; Potassium 4.3 mmol/L (3.5-5.1)
[2021-12-14] MEDS ORDERED: LEVOTHYROXINE SODIUM 175 MCG TABLET PO SCH (06:30)
[2021-12-14 08:28] LABS: Estimated Average Glucose 103 mg/dl; Hemoglobin A1C 5.2 % (4.5-5.6)
[2021-12-14] MEDS ORDERED: ASPIRIN 81 MG ECTAB PO SCH (09:00)
--- NOTE | 2021-12-14 09:22 | Hospitalist Progress Note ---
Date of Service December 14, 2021 Assessment & Plan (1) Demyelinating disease: Plan: Annita is a 41-year-old female with a history of dural sinus thrombosis in 2019 no longer on anticoagulation, migraines, and a history of MS diagnosed 1 year ago who presents with sudden onset of left facial numbness and a qualitative feeling of her vision being off which started at 1145 this morning. She was admitted as a stroke alert, telestroke was consulted and did not recommend thrombolytics. Suspect possible MS flare, with differential including migraine. Recommended for MRI with and without contrast. Monico Guillermoanna MRI-H: no stroke. NAF. Left-sided facial numbness, admitted a stroke alert. History of MS -CThead: No acute findings -CTAhead: Unremarkable CTA of the head and neck. Of note cerebral venous sinuses are patent, no evidence for recurrent dural sinus thrombosis Last on methylprednisolone 08/11/2020, was converted to prednisone and then taper down and discontinue at that time No leukocytosis Hemoglobin normal Creatinine normal POC glucose 87 No transaminitis hCG negative Troponin pending, no acute EKG abnormalities - Stroke alert, TNKase not recommended. Recommended for opthomology eval tomorrow after MRI complete MRI with and without contrast pending of brain/orbits Continue aspirin daily History of intermittent headache and blurry vision. Has had intermittent neuro symptoms including right ear tinnitus, orthostatic dizziness, lip numbness, right forehead numbness, transient right mouth droop, hands and posterior neck numbness all intermittently over the past several years. Continue Vumerity - MRI-StatRad: No abnormal enhancement of optic nerves. Enhancing intraparenchymal lesions in R frontal and ?R temporal lobe ?dymelination - Discussed with optho. No signs of optic neuritis on MRI. Can have outpt f/u eye exam, defer to neuro for MS recommendations at this time History of dural sinus thrombosis Last seen by neuro 08/11/2020 Was treated with warfarin, was extended with treatment by 6 months. Ultimately discontinued 08/12/[address] venogram Assessment at that time showed asymptomatic demyelinating plaques of the upper cervical cord suspicious for demyelinating disease/MS Reports had an anticoagulation workup in [place] which was normal per patient, but has not followed up on this since with the Neurologist since Hypothyroidism Continue Synthroid. Dose 175mcg confirmed with pt TSH pending DVT PPx: Heparin Diet: Regular, if OK with bedside swallow CODE: Full Dispo: Med Tele whil sherry post stroke eval, likely downgrade to Med/Surg tomorrow Admission and Anticipated Discharge Date Admission Date: December 13, 2021 Results & Data Results & Data ([facility]) Vital Signs (Past 12 Hours) Vital Signs BP Pulse Ox O2 Del Method 12/14/21 00:45 105/68 98 Room Air 12/13/21 22:00 Room Air PG Care Time/CCT Total # of Minutes Spent Total Time Spent with Patient: Total time spent is greater than 50% in coordination of care (as documented) at patient's floor/unit and/or counseling patient: Coding Diagnoses Demyelinating disease G37.9
--- NOTE | 2021-12-14 09:58 | Neurology Consultation ---
Date of Consultation December 14, 2021 Assessment & Plan (1) Multiple sclerosis: Plan 41-year-old female with a history of multiple sclerosis, on Vumerity, presenting with left periorbital discomfort, left facial paresthesias, slight facial weakness. Symptoms have entirely resolved. No new or active lesions per my review of patient's brain and orbital MRI completed overnight. There is some chronic minimal postcontrast enhancement from a previously identified right frontal lesion as well as questionable postcontrast enhancement in the right temporoparietal region although this may relate to a blood vessel and was seen previously as well. I did discuss these results with radiology. No obvious new or active lesions although more detailed review pending. Given patient's near complete symptomatic resolution and lack new obvious or active lesions on MRI, I do not think treatment with intravenous corticosteroids is necessary at this point in time. No convincing evidence for a true MS relapse. It is interesting, however, that she has not had left facial/periorbital symptoms before. She does have a history of migraine, the episode may have been migrainous. Optic neuritis would seem unlikely given lack of associated signs or symptoms. There is no evidence of stroke on MRI. Would follow-up with the official radiology interpretation of the above imaging. I did review the images with radiology, no obvious new or active lesions, further detailed review pending. However, my inclination would not be to treat her with corticosteroids given her symptomatic resolution, current clinical stability, and intact neurological examination. Patient may continue with Vumerity for her multiple sclerosis, she seems to be doing well with this medication, no clear evidence of breakthrough disease or intolerance at this point in time. Patient will continue to follow with Dr. Swati Stephenson at [facility], multiple sclerosis specialist for ongoing management of her condition. History of Present Illness Reason for Consultation: Stroke alert, suspected demyelinating disease/MS Requesting Physician: Jorge Osei MD Attending Physician: Jorge Osei MD History of Present Illness The patient is a 41-year-old female with a history of recently diagnosed multiple sclerosis, on Vumerity, following with Dr. Swati Stephenson, [facility], who presented to the emergency department last night for further assessment of left eye discomfort, slight blurry vision, scleral injection, slight droopiness and numbness and tingling affecting the left side of the face. Symptoms began acutely yesterday afternoon and have nearly resolved. She does not recall having similar left facial symptoms previously. No known history of optic neuritis. She endorses a history of significant anxiety, in part related to her MS symptoms. Past medical history also notable for cerebral venous thrombosis while on an oral contraceptive, diagnosed in 2019 treated with warfarin, subsequent resolution. She denies any recent illnesses or infections. She denies any exacerbation of MS symptoms related to heat. Patient has had right-sided sensory symptoms related to her MS in the past. She does have lesions within the upper cervical spinal cord and has had a positive lumbar puncture with MS panel previously. The patient does remark this morning, that her left facial numbness is nearly resolved, as has her left eye blurry vision. She denies any other neurologic symptoms at this point and feels as if she is back to her typical baseline. She did have an MRI of the brain and orbits completed during her current admission to the Medical [facility]. I did in dependently review these images. I was able to appreciate the chronic foci of demyelination within the right posterior upper cervical spinal cord, right middle cerebellar peduncle right frontal lobe. No obvious new lesions. No areas of restricted diffusion. No obvious abnormal postcontrast enhancement that would otherwise suggest an active plaque. There is a minimal area of enhancement within the right temporoparietal region that may be related to a blood vessel in this area. There was vague blush or postcontrast enhancement within the right frontal region which has been seen on previous MRI as well. These findings are not highly suggestive of new or active MS plaques. Official radiology interpretation is pending at this time. I did review a clinic note from the [facility] multiple sclerosis clinic, office visit, from November 30, 2021. History of relapsing remitting multiple sclerosis, cerebral venous thrombosis, hyperlipidemia, hypothyroidism, anxiety, lumbar degenerative disc disease, and migraines noted. Has been on Vumerity. Patient endorsed anxiety regarding her symptoms. Endorsed a history of occasional headaches, typically left maxillary area. Still notices right sided facial numbness, more so with stress. Migraines felt to be well controlled. On daily aspirin regarding history of previous venous thrombosis of her right sigmoid sinus. Had been complaining of some difficulty with short-term memory and emotional lability previously. MS symptoms consisted of difficulty writing, typing, occasional jerking movements in 2017. Right-sided numbness in early . Vertigo in July 2020, tinnitus to the right ear, right-sided facial numbness as well. Brain and cervical spine MRIs from April 2021 stable. Previous findings have included 3 subcentimeter T2 signal changes, subcortical, periventricular, right frontal with postcontrast enhancement, 8 mm T2 signal change right pontomedullary junction with postcontrast enhancement. Scattered T2 hyperintense lesions, mostly subcortical, a few abutting the ventricles, in particular lesion at the right atrium of the lateral ventricle. No lesions in the thoracic spine from the study done in September 2020. CSF results revealing greater than 5 oligoclonal bands. Patient is WENDI virus antibody positive. Testing for MS mimics noted as well, MAHESH +1: 80 titer, homogeneous pattern. Hypercoagulable testing negative. Sjogren's negative, rheumatoid arthritis negative, HIV negative, Lyme negative. Patient has tested positive for hepatitis B core antibody. Have been on Tecfidera in the past, discontinued due to side effects, subsequently started Vumerity. Allergies Allergy/AdvReac Type Severity Reaction Status Date / Time pollen extracts Allergy Intermediate ITCHY, Verified 12/13/21 15:03 WATERY EYES, SNEEZING, CONGESTION Home Medications Medication Instructions Recorded Confirmed Type aspirin 81 mg chewable tablet 81 mg PO DAILY #90 tabs 08/12/20 12/13/21 Rx diroximel fumarate 231 mg 462 mg PO BID 12/13/21 12/13/21 History capsule,delayed release (Vumerity) levothyroxine 175 mcg tablet 175 mcg PO DAILYBB 12/13/21 12/13/21 History Patient History Medical History (Updated 12/14/21 @ 10:31 by Gualberto Hunt MD) Chronic back pain L4-L5 Dural venous sinus thrombosis Environmental and seasonal allergies Hypothyroidism Lumbar facet arthropathy Migraine Surgical History History of adenoidectomy History of section History of tonsillectomy Family History Grandmother (Maternal) Lymph node cancer Social History Smoking Status: Never smoker Second Hand Exposure: No; Hx Alcohol Use: No Hx Substance Use: No Preferred Language: Nepalese Communication Ability: Effective Director Of Revenue Cycle Management Required: No Beliefs That Will Affect Care: None Current Living Situation: Spouse Feels Safe at Home: Yes Assistive Devices: Glasses Review of Systems Constitutional: no fever and no chills Eyes: as per Subjective / HPI; no blind spots and no diplopia Ear, Nose, Mouth, Throat: no hearing loss Respiratory: no cough and no dyspnea Cardiovascular: no chest pain and no palpitations Gastrointestinal: no nausea and no vomiting Genitourinary: no urinary frequency and no urinary incontinence Musculoskeletal: + back pain; no myalgia Integumentary: no rash Neurologic: as per Subjective / HPI; no gait abnormality, no localized weakness, no tremor(s), no seizure-like activity, no dizziness, no abnormal speech and no memory loss Psychiatric: + anxiety Hematologic / Lymphatic: no easy bleeding and no easy bruising Exam (Neuro) Constitutional: well developed and well nourished; no acute distress Eyes: normal visual bey by confrontation, PERRL, normal accommodation and EOM intact bilaterally; no fundoscopic abnormality, no nystagmus and no papilledema Cardiovascular: Vessels: normal carotid upstroke; no carotid bruit Neurologic: Oriented to:: Person, Place and Time Memory: Short Term Intact and Remote Intact Attention: Span Intact and Concentration Intact Language: Naming Objects and Repeating Phrases Speech Fluency: negative Dysarthria Speech Aphasia: negative Aphasia Fund of Knowledge: Current Events, Past History and Vocabulary Cranial Nerves: Normal II (Visual bey full to confrontation, visual acuity normal), III, IV, (Pupils equal round reactive to light and accommodation, eye movements normal), VII (There is no facial droop or weakness), VIII (Hearing intact), IX, X (Palate elevates to midline), XI (Shoulder shrug intact) and XII (Tongue protrudes to midline); Ab norm V (Mildly reduced facial sensation for the left mid and lower face.) Motor Strength: Normal Lower Extremities and Normal Upper Extremities; negative Pronator Drift Motor Tone: Normal Lower Extremities and Normal Upper Extremities Muscle Bulk/Involuntary Movements: No Involuntary Movements; negative Muscle Atrophy Sensation: Light Touch Intact, Pain/Temperature Intact, Vibration Intact and Proprioception Intact Coordination: Normal; negative Limited Balance, Dysdiadochokinesia, Finger-Nose Abnormal or Heel-Lazar Abnormal Deep Tendon Reflexes: Rt Triceps: 2+, Lt Triceps: 2+, Rt Biceps: 2+, Lt Biceps: 2+, Rt Brachioradialis: 2+, Lt Brachioradialis: 2+, Rt Patellar: 2+, Lt Patellar: 2+, Rt Ankle: 2+ and Lt Ankle: 2+ Special Tests: negative Babinski Present Gait: Normal Station and Gait Details: No afferent pupillary defect. No red color desaturation. No periorbital pain with testing ocular motility. No facial droop. No ptosis. Results & Data ([facility]) Vital Signs (Past 12 Hours) Vital Signs BP Pulse Ox O2 Del Method 12/14/21 00:45 105/68 98 Room Air 12/13/21 22:00 Room Air Laboratory Results WBC 4.93, hemoglobin 13.1, hematocrit 39.4, MCV 97.3, platelet count 258, sodium 137, potassium 4.3, BUN 11, creatinine 0.64, glucose 83, hemoglobin A1c 5.2, calcium 8.4, magnesium 1.7, AST 21, ALT 35, triglycerides 133, cholesterol 168, LDL 107, VLDL 27, HDL 34, hCG negative, SARS-CoV-2 RNA negative. Lumbar puncture results from August 27, 2020 reviewed. Elevated CSF to serum IgG index noted, greater than 5 well-defined gamma restriction bands observed in the CSF with additional identical gamma restriction bands in CSF and serum. This finding indicative of intracerebral as well as systemic synthesis of gammaglobulins. Diagnostic Findings Gadolinium-enhanced brain MRI, MS protocol, and orbital MRI completed yesterday. I independently reviewed the images, imaging is as described in the history of present illness. Previous imaging as follows, brain MRI from August 10, 2020 had revealed an 8 mm focus of T2 signal abnormality identified to the right pontomedullary junction demonstrating abnormal postcontrast enhancement, likely consistent with a focus of active demyelination. There are additional scattered subcentimeter foci of T2 signal within the subcortical and periventricular white matter with a lesion in the right frontal lobe, periventricular white matter, also showing mild postcontrast enhancement. 2 additional T2 hyperintense lesions were seen in the upper cervical spinal cord at that time as well. I did independently review these images and agree with the radiologist's findings. Cervical spine MRI at that time had revealed 3 T2 hyperintense lesions in the cervical spinal cord, none of these lesions exhibited abnormal postcontrast enhancement, however. The lesions were felt to be consistent with demyelinating plaques. Independently reviewed these images as well. Coding Level of Care Code 05909 Initial In Care Lvl 3 Diagnoses Multiple sclerosis G35
[2021-12-14] MEDS ORDERED: STROKE PATIENT DISCHARGE STA (11:17)
--- NOTE | 2021-12-14 11:17 | Magnetic Resonance Report ---
MR brain wo/w con CLINICAL HISTORY: Stroke Alert, ?MS TECHNIQUE: Multiplanar and multisequence MR images of the brain were obtained prior to and following administration of gadolinium contrast. Comparison: Comparison is made to MRI brain 08/10/2020 FINDINGS: No abnormal restricted diffusion is identified. Interval stability of right matter foci at the right temporal lobe, right frontal lobe, left periventricular white matter, and cervical spine. Right ponto medullary focus of uptake is unchanged as well. The ventricular system is normal in appearance. There is equivocal enhancement of the right frontal lesion, seen on the coronal T1 postcontrast images onl y. This may represent normal symmetric enhancement of the periventricular tissues. There is no mass e ffect or midline shift. There is no evidence of acute intraparenchymal hemorrhage. No extra axial flu id collections are seen. The corpus callosum, pituitary gland, and cerebellar tonsils appear grossly unremarkable. Flow voids of the major intracranial arterial vessels are identified. The imaged portions of the para nasal sinuses, mastoid air cells, and orbits are unremarkable. IMPRESSION: Multiple T2 hyperintense lesions are seen which are stable from prior exam. No new lesions are seen. Questionable enhancement of the right frontal lesion is likely artifactual. ACT 112: Negative or not required by law. Electronically signed by: Eduard Eubanks M.D. 12/14/2021 11:16 AM
--- NOTE | 2021-12-14 11:22 | Discharge Summary ---
Date of Service December 14, 2021 Admission HPI Per Admitting Provider Annita is a 41-year-old female with a history of dural sinus thrombosis in 2019 no longer on anticoagulation, migraines, and a history of MS diagnosed 1 year ago who presents with sudden onset of left facial numbness and a qualitative feeling of her vision being off which started at 1145 this morning. She was admitted as a stroke alert, telestroke was consulted and did not recommend thrombolytics. Suspect possible MS flare, with differential including migraine. Recommended for MRI with and without contrast. L eye, nose, lip numbness/tingling and facial asymmetry this morning has ismilar sx las tyear with initial MS presentation At the time her vision felt strained and slightly pixelated, but no darkening or loss of vision. Vision felt a little similar to migraines in the past, but has not has the numbness tingling. No attempted x for this. Sx improving, but not yet resolved No chest pain, chest pressure, fluttering, palpitations, shortness of breath, fever, chills, or sweats. No recent illnesses Follows with Dr. Stephenson in [facility]. Vumerity [id number] tablets in AM and night. Used to ttake excedrin. No current steroid use. Last took prednisone august of last year with her flare. Takes synthroid 175mcg Medical History: Reviewed Medications: Reviewed Surgical History: Reviewed Allergies: Reviewed Social History: No tobacco, rare social etoh use. No MM use. Code Status: Full Code Principal Diagnosis Facial Weakness, Vision Change, V1-V3 sensory change suspect complex migrane vs MS Discharge Exam General: A&Ox3. NAD. Cooperative. HEENT: Atraumatic, normocephalic. Pulm: CTAB A&P. -wheezes, -rales, -rhonchi. Symmetrical chest rise. No increased work of breathing. No respiratory distress. Cardiac: RRR, -mrg. Radial pulses intact and symmetrical. Abdominal: Nontender, nondistended, soft. BS present. CRANIAL NERVES: II: Pupils equal and reactive, no relative afferent pupillary defect, no VF cuts III, IV, : EOM intact, no gaze preference or deviation, no nystagmus. V:Rdiminished but nearly equal sensation to temperature & soft touch in V1-V3, improved from prior VII: NO asymmetry at dc VIII: normal hearing to speech IX, X: normal palatal elevation, no uvular deviation XI: 5/5 head turn and 5/5 shoulder shrug bilaterally XII: midline tongue protrusion MOTOR: RUE: 5/5 Shoulder internal rotation, external rotation, flexion, extension, abduction, adduction 5/5 Elbow flexion/extension, wrist flexion/extension 5/5 all round logger strength, finger flexion/extension, interosseus LUE: 5/5 Shoulder internal rotation, external rotation, flexion, extension, abduction, adduction 5/5 Elbow flexion/extension, wrist flexion/extension 5/5 all round logger strength, finger flexion/extension, interosseus RLE: 5/5 to hip flexion/extension, knee flexion/extension, ankle dorsiflexion/plantarflexion LLE: 5/5 to hip flexion/extension, knee flexion/extension, ankle dorsifl exion/plantarflexion REFLEXES: 2/4 patellar, bicepts, DTR without asymmetry. no clonus SENSORY: Normal to touch, pinprick, vibration, temp in upper and lower extremities without deficit or asymmetry COORD: Normal finger to nose Discharge Data Allergies Allergy/AdvReac Type Severity Reaction Status Date / Time pollen extracts Allergy Intermediate ITCHY, Verified 12/13/21 15:03 WATERY EYES, SNEEZING, CONGESTION Consultations 12/13/21 14:16 ED Decision to Admit Stat 12/13/21 17:42 Consult Neurology Routine Ordered Studies 12/13/21 13:05 CT Brain [CT head/brain wo con] Stat CT angio head w con Stat CT angio neck with con Stat 12/13/21 17:42 MR brain wo/w con Urgent MR orbit wo/w con Urgent Hospital Course (1) Multiple sclerosis: Annita is a 41-year-old female with a history of dural sinus thrombosis in 2019 no longer on anticoagulation, migraines, and a history of MS diagnosed 1 year ago who presents with sudden onset of left facial numbness and a qualitative feeling of her vision being off which started at 1145 this morning. She was admitted as a stroke alert, telestroke was consulted and did not recommend thrombolytics. Suspect possible MS flare, with differential including migraine. Follow-up MRI with initial stat read read concerning for right temporal and right frontal enhancing lesion. On review with radiology and neurology, right temporal lesion likely blood vessel, right frontal lesion equivocal but similar in appearance to prior lesion on imaging. Steroid treatment deferred. Images pushed to [facility] for patient's neurologist to review, steroids were not recommended at discharge. Case was discussed with ophthalmology, felt patient was okay for discharge with follow-up next week for eye exam. [place] does include complex migraine. To do as outpatient: 1. Continue Vumerity 2. No steroids prescribed 3. Continue aspirin 4. Neurology and ophthalmology follow-up Left-sided facial numbness, admitted a stroke alert. History of MS -CThead: No acute findings -CTAhead: Unremarkable CTA of the head and neck. Of note cerebral venous sinuses are patent, no evidence for recurrent dural sinus thrombosis Last on methylprednisolone 08/11/2020, was converted to prednisone and then taper down and discontinue at that time No leukocytosis Hemoglobin normal Creatinine normal POC glucose 87 No transaminitis hCG negative Troponin pending, no acute EKG abnormalities - Stroke alert, TNKase not recommended. Recommended for opthomology eval tomorrow after MRI complete MRI with and without contrast pending of brain/orbits Continue aspirin daily History of intermittent headache and blurry vision. Has had intermittent neuro symptoms including right ear tinnitus, orthostatic dizziness, lip numbness, right forehead numbness, transient right mouth droop, hands and posterior neck numbness all intermittently over the past several years. Continue Vumerity - Defer steroids pending MRI History of dural sinus thrombosis Last seen by neuro 08/11/2020 Was treated with warfarin, was extended with treatment by 6 months. Ultima tely discontinued 08/12/[address] venogram Assessment at that time showed asymptomatic demyelinating plaques of the upper cervical cord suspicious for demyelinating disease/MS Reports had an anticoagulation workup in [place] which was normal per patient, but has not followed up on this since with the Neurologist since Hypothyroidism Continue Synthroid. Dose 175mcg confirmed with pt TSH pending DVT PPx: Heparin Diet: Regular, if OK with bedside swallow CODE: Full Dispo: Med Tele whil sherry post stroke eval, likely downgrade to Med/Surg tomorrow Total Time Total Time Spent Total Time Spent (In Minutes): Time spend day of discharge 45 minutes including direct patient care, d ocumentation, review of labs and images, and coordination of care. Discharge Plan Discharge Items Patient Disposition: Home - Self-Care Reason For Visit: FACIAL DROOP AND NUMBNESS,ARM NUMB AND TINGLING Discharge Diagnosis: Complex migraine versus MS Activity: Resume your previous activity Non-emergency contact: Neurologist Call non-emergency contact if: you have any medication questions, your symptoms worsen, your pain is not controlled, your pain is worsening, your pain is unusual for you, your pain is concerning for you and you have a fever Follow-up/Referrals: Zuri Fish [Primary Care Provider] - Diet: Regular Addtl Attending Provider Instructions: You are seen in the hospital for facial droop, and sensory change with additional vision change. Your MRI showed a right frontal area which was equivocal to similar to prior imaging which was unlikely to be the cause of your symptoms. There was initial concern raised for a right temporal enhancing lesion, on subsequent evaluation and review this was felt to most likely be a blood vessel. Steroid treatment was not recommended at this time. Your symptoms improved, it was recommended to continue your home medications with follow-up to your neurologist. Images have been pushed to the [employer] neurology system for review. You have not been prescribed any new medications at this time. Please schedule a follow-up appointment with your PCP for within 1 week, and call your [facility] neurologist for an appointment per their preference. If you develop any new or worsening symptoms including fever, chills, sweats, chest pain, chest pressure, difficulty breathing, uncontrolled nausea/vomiting, rash, wheezing, passing out or nearly passing out, bleeding, black/bloody bowel movements, or other new or concerning symptoms please call your primary care physician at [], or call 911 for re-evaluation in the emergency department if you are very concerned. Pending Studies at Discharge: No Stand-Alone Forms: My [facility], Smoking Cessation Medications and DC Order Prescriptions: Continued levothyroxine 175 mcg tablet 175 mcg PO DAILYBB Vumerity 231 mg capsule,delayed release(DR/EC) 462 mg PO BID aspirin 81 mg tablet,chewable 81 mg PO DAILY Qty: 90 3RF Discharge Orders: Discharge Order (Routine); Ordered 12/14/21 Ordered By: Jorge Osei Admission Data Admit Date/Time: 12/13/21 14:28 Attending Provider: Jorge Osei Admit Provider: Jorge Osei Primary Care Provider: Fish,Ravishanka E. Other Providers: Jorge Osei ; Gualberto Hunt Coding Level of Care Code D/C DAY MANAGEMENT >30 MINS Diagnoses Multiple sclerosis G35
--- NOTE | 2021-12-14 12:20 | Magnetic Resonance Report ---
MR orbit wo/w con HISTORY: 41 years-old Female stroke alert, suspected demyelinating dz/MS, acute strokelike symptoms with left facial numbness and left eye pain. COMPARISON: Brain MRI of same day. TECHNIQUE: Multiplanar multisequence MRI of the orbits was obtained both with and without the use of 10.5 cc Gadavist. FINDINGS: The midline structures appear unremarkable. There is a small amount of symmetric fluid within the sub arachnoid spaces surrounding the bilateral optic nerves which is likely within normal limits. The ext raocular musculature, globes and orbits are within normal limits. No orbital mass, acute inflammatory changes or abnormal orbital enhancement. There is a subcentimeter focus of T2 prolongation within the subcortical/periventricular right fronta l lobe on image 17 series 6 which demonstrates enhancement as seen on image 17 of series 8. Additiona l focal area of likely benign vascular enhancement is noted within the right temporal lobe on image 1 4 series 8 without corresponding T2 abnormality. There is an additional T2 hyperintense focus within the subcortical right temporal lobe on image 10 series 6 and also image 15 series 9. Bilateral jeff bullosa. Mild leftward bowing and spurring of the nasal septum. IMPRESSION: 1. Normal appearance of the orbits and optic nerves. No signal abnormalities or abnormal orbital enha ncement. 2. There are a few T2 hyperintense white matter foci which are nonspecific, however, are suspicious f or demyelinating disease. A right frontal lobe lesion demonstrates subtle enhancement which is sugges tive of an actively demyelinating plaque. ACT 112: Negative or not required by law. The above report was generated using voice recognition software. It may contain grammatical, syntax o r spelling errors. Dictated: 12/14/2021 9:28 AM Transcribed: 12/14/2021 10:11 AM Ana Laura [id number] N[place] Electronically signed by: Augustine Farmer M.D. 12/14/2021 12:19 PM
== END 2021-12-14 12:05 | disposition home or self-care (01) ==
LOC: ED 12:24 → INTOOBSV 14:28 → EDINP 14:28
DX: G37.9 Demyelinating disease of central nervous system, unspecified; Z79.899 Other long term (current) drug therapy; H53.9 Unspecified visual disturbance; E03.9 Hypothyroidism, unspecified; Z79.82 Long term (current) use of aspirin; R20.0 Anesthesia of skin; G35 Multiple sclerosis